=== PATIENT | male | born 1940 | race Hispanic/Latino ===

== ENCOUNTER 2017-09-24 11:56 | Inpatient (IN) | payer MEDICARE ==
[~2017-09-24] VITALS: Ht 172.7 cm; Wt 60.1 kg
[2017-09-24 14:13] VITALS: BP 135/67
[2017-09-24] MEDS ORDERED: ASPI81TA40 PO (14:55)
[2017-09-24] MEDS ORDERED: AMLO2.5T PO (14:55)
[2017-09-24] MEDS ORDERED: CALC667C10 PO (14:58)
[2017-09-24] MEDS ORDERED: ATOR20TA65 PO (14:58)
[2017-09-24] MEDS ORDERED: FERR325T22 PO (15:09)
[2017-09-24] MEDS ORDERED: DOCU100T PO (15:09)
[2017-09-24] MEDS ORDERED: INSU100V12 SQ (15:09)
[2017-09-24] MEDS ORDERED: CARV6.25 PO (15:09)
[2017-09-24] MEDS ORDERED: LINA5TAB PO (15:12)
[2017-09-24] MEDS ORDERED: HYDR-309 PO (15:17)
[2017-09-24] MEDS ORDERED: OMEG-75 PO (15:23)
[2017-09-24] MEDS ORDERED: OMEP20CA10 PO (15:24)
[2017-09-24] MEDS ORDERED: CLOP75TA32 PO (15:26)
[2017-09-24] MEDS ORDERED: CINA30 PO (15:30)
[2017-09-24] MEDS ORDERED: DiphenhydrAMINE HCL 50 MG/ML VIAL IVP PRN (16:30)
[2017-09-24] MEDS ORDERED: GLUCAGON 1MG KIT 1 MG ML IM PRN (16:30)
[2017-09-24] MEDS ORDERED: ZOLPIDEM TARTRATE 5 MG TAB PO PRN (16:30)
[2017-09-24] MEDS ORDERED: ACETAMINOPHEN 325 MG TAB PO PRN ×2 (16:30)
[2017-09-24] MEDS ORDERED: LACTULOSE 20 GM/30 ML UDCUP PO PRN (16:30)
[2017-09-24] MEDS ORDERED: DEXTROSE 50%-WATER 50 ML DISP.SYRIN IV PRN (16:30)
[2017-09-24] MEDS: INSULIN R PO SSI SQ SCH ×2 (16:30→20:11)
[2017-09-24] MEDS ORDERED: POTASSIUM CHLORIDE 20 MEQ ERTAB PO PRN (16:30)
[2017-09-24] MEDS ORDERED: VANCOMYCIN PROTOCOL PER PHARMACY IV SCH (16:30)
[2017-09-24] MEDS ORDERED: DIPHENHYDRAMINE HCL 25 MG CAPSULE PO PRN (16:30)
[2017-09-24] MEDS ORDERED: ONDANSETRON HCL 4 MG/2 ML VIAL IVP PRN (16:30)
[2017-09-24] MEDS ORDERED: NITROGLYCERIN 0.4 MG SL TAB SL PRN (16:30)
[2017-09-24] MEDS ORDERED: POTASSIUM CHLORIDE 10% ELIXIR 20 MEQ/15 ML UDCUP PO PRN (16:30)
[2017-09-24] MEDS ORDERED: ONDANSETRON HCL MDV 20ML 2 MG/ML VIAL IVP PRN (16:30)
[2017-09-24] MEDS ORDERED: GUAIFENESIN SUGAR-FREE 100 MG/5 ML UDCUP PO PRN (16:30)
[2017-09-24] MEDS ORDERED: LIDOCAINE HCL-MPF 1% 2ML VIAL IJ PRN (16:30)
[2017-09-24] MEDS ORDERED: POTASSIUM CHLORIDE 20MEQ/100ML 100 ML IV PRN (16:30)
[2017-09-24] MEDS ORDERED: CLONIDINE HCL 0.1 MG TABLET PO PRN (16:30)
[2017-09-24] MEDS ORDERED: GUAIFENESIN-DM 200/20 MG 10 ML PO PRN (16:30)
[2017-09-24] MEDS ORDERED: MAG HYDROX/AL HYDROX/SIMETH ES 30 ML SUSP UDCUP PO PRN (16:30)
[2017-09-24] MEDS ORDERED: VANCOMYCIN 1.5 GM in SODIUM CHLORIDE 0.9% 250 ML IV ONE (16:45)
[2017-09-24] MEDS ORDERED: COMPOUND IV REFRIGERATED 1 EACH IVSOLN MISC PRN (16:45)
[2017-09-24 17:09] VITALS: BP 129/65
[2017-09-24 19:00] VITALS: BP 139/70
[2017-09-24] MEDS: MEROPENEM 1 GM VIAL IVP SCH (19:28)
[2017-09-24] MEDS ORDERED: HEPARIN SODIUM 5000UNIT/ML 1ML VIAL ONE (19:59)
[2017-09-24] MEDS ORDERED: SODIUM CHLORIDE 0.9% 1000ML 1,000 ML IV ONE (20:00)
[2017-09-24] MEDS ORDERED: HEPARIN SODIUM 5000UNIT/ML 1ML VIAL IJ PRN (21:15)
[2017-09-24] MEDS ORDERED: SODIUM CHLORIDE 0.9% 1000ML 1,000 ML IV PRN (21:15)
[2017-09-24] MEDS ORDERED: 0.9% SODIUM CHLORIDE 250 ML IV BAG IV PRN (21:15)
[2017-09-24 23:00] VITALS: BP 113/58
[2017-09-24] MEDS: FAMOTIDINE 20MG TAB 20 MG TAB PO SCH (23:41)
[2017-09-25] MEDS: IPRATROPIUM/ALBUTEROL SULFATE 3 ML SOLUTION IH SCH ×5 (01:26→23:30)
[2017-09-25] MEDS: MEROPENEM 1 GM VIAL IVP SCH ×3 (01:37→18:38)
[2017-09-25 03:00] VITALS: BP 133/53
[2017-09-25 04:38] LABS: HEMATOCRIT 27.5 % (42-54); MEAN CORPUSCULAR HEMOGLOBIN 32.4 pg (27.0-33.0); MEAN CORPUSCULAR HGB CONC 35.3 g/dL (32.0-36.0); MEAN CORPUSCULAR VOLUME 91.8 fL (79-99); PLATELET COUNT (AUTO) 234 K/uL (130-400); RED CELL DISTRIBUTION WIDTH 18.4 % (11.0-15.5); WHITE BLOOD COUNT (AUTO) 6.3 K/uL (4.8-10.8)
[2017-09-25 04:44] LABS: INR 1.04 (0.85-1.15); PARTIAL THROMBOPLASTIN TIME 26.4 SEC (26.3-35.5); PROTHROMBIN TIME 10.9 SEC (9.6-11.6)
[2017-09-25 04:49] LABS: ALBUMIN 1.9 g/dL (3.5-5.0); BILIRUBIN,TOTAL 0.4 mg/dL (0.2-1.0); CREATININE 4.9 mg/dL (0.5-1.5); PHOSPHORUS 2.5 mg/dL (2.5-4.9); POTASSIUM 4.2 mmol/L (3.5-5.1); TOTAL PROTEIN, SERUM 6.8 g/dL (6.0-8.3)
[2017-09-25] MEDS: INSULIN R PO SSI SQ SCH ×4 (06:33→21:00)
[2017-09-25 07:35] VITALS: BP 143/66
[2017-09-25] MEDS ORDERED: COMPOUND IV REFRIGERATED 1 EACH IVSOLN MISC PRN (07:45)
[2017-09-25] MEDS: FOLIC ACID/VITAMIN B COMP W-C 1 MG CAPSULE PO SCH (11:35)
[2017-09-25] MEDS: FAMOTIDINE 20MG TAB 20 MG TAB PO SCH ×2 (11:35→21:19)
[2017-09-25 11:36] VITALS: BP 138/65
[2017-09-25 16:18] VITALS: BP 135/70
[2017-09-25 20:00] VITALS: BP 134/62
[2017-09-26] VITALS: BP 113/59
[2017-09-26] MEDS: MEROPENEM 1 GM VIAL IVP SCH ×3 (02:49→17:20)
[2017-09-26 04:00] VITALS: BP 127/64
[2017-09-26] MEDS: IPRATROPIUM/ALBUTEROL SULFATE 3 ML SOLUTION IH SCH ×3 (06:50→19:20)
[2017-09-26] MEDS: INSULIN R PO SSI SQ SCH ×4 (07:30→21:00)
[2017-09-26 08:00] VITALS: BP 123/70
[2017-09-26] MEDS ORDERED: ALBUMIN (HUMAN) 25% 100 ML IV PRN (08:45)
[2017-09-26] MEDS ORDERED: 0.9% SODIUM CHLORIDE 250 ML IV BAG IV PRN (08:45)
[2017-09-26] MEDS ORDERED: SODIUM CHLORIDE 0.9% 1000ML 1,000 ML IV PRN (08:45)
[2017-09-26] MEDS ORDERED: HEPARIN SODIUM 5000UNIT/ML 1ML VIAL IJ PRN (08:45)
[2017-09-26] MEDS: FOLIC ACID/VITAMIN B COMP W-C 1 MG CAPSULE PO SCH (10:28)
[2017-09-26] MEDS: FAMOTIDINE 20MG TAB 20 MG TAB PO SCH ×2 (10:28→23:13)
[2017-09-26 11:44] VITALS: BP 131/63
[2017-09-26] MEDS ORDERED: LIDOCAINE/PRILOCAINE CREAM 30 GM TUBE TP SCH (12:15)
[2017-09-26] MEDS: VANCOMYCIN 750MG + NS 250 ML IV SCH ×2 (13:56)
[2017-09-26] MEDS ORDERED: BRIM15OS OU (14:09)
[2017-09-26 16:00] VITALS: BP 129/67
[2017-09-26 19:00] VITALS: BP 138/64
[2017-09-27] VITALS (19 sets, daily range): BP systolic 120–158; BP diastolic 54–98
[2017-09-27] MEDS: IPRATROPIUM/ALBUTEROL SULFATE 3 ML SOLUTION IH SCH ×5 (00:24→23:44)
[2017-09-27] MEDS: MEROPENEM 1 GM VIAL IVP SCH ×3 (02:59→16:54)
[2017-09-27 04:47] LABS: HEMATOCRIT 27.4 % (42-54); MEAN CORPUSCULAR HEMOGLOBIN 31.8 pg (27.0-33.0); MEAN CORPUSCULAR HGB CONC 34.5 g/dL (32.0-36.0); MEAN CORPUSCULAR VOLUME 92.2 fL (79-99); PLATELET COUNT (AUTO) 212 K/uL (130-400); RED BLOOD CELL COUNT(AUTO) 2.97 MIL/uL (4.50-6.20); RED CELL DISTRIBUTION WIDTH 17.8 % (11.0-15.5); WHITE BLOOD COUNT (AUTO) 5.9 K/uL (4.8-10.8)
[2017-09-27 05:09] LABS: CREATININE 4.7 mg/dL (0.5-1.5); POTASSIUM 4.1 mmol/L (3.5-5.1)
[2017-09-27] MEDS: INSULIN R PO SSI SQ SCH ×4 (06:37→21:00)
[2017-09-27] MEDS ORDERED: DEXAMETHASONE SOD PHOSPHATE 10MG/ML 1ML VIAL ONE (13:00)
[2017-09-27] MEDS ORDERED: GLYCOPYRROLATE 0.2 MG/ML 5 ML VIAL ONE (13:00)
[2017-09-27] MEDS ORDERED: LIDOCAINE PF 2% 5ML ABBOJECT ONE (13:00)
[2017-09-27] MEDS ORDERED: PROPOFOL 10 MG/ML 20ML VIAL IV ONE (13:01)
[2017-09-27] MEDS ORDERED: MIDAZOLAM HCL 1 MG/ML 2ML VIAL ONE (13:01)
[2017-09-27] MEDS ORDERED: FENTANYL CITRATE PF 50 MCG/1 ML 2ML VIAL ONE (13:02)
[2017-09-27] MEDS ORDERED: BUPIVACAINE/PF 0.5% 30ML VIAL ONE (13:11)
[2017-09-27] MEDS ORDERED: LIDOCAINE HCL 1% 20 ML VIAL ONE (13:11)
[2017-09-27] MEDS: FAMOTIDINE 20MG TAB 20 MG TAB PO SCH ×2 (16:53→23:20)
[2017-09-27] MEDS: FOLIC ACID/VITAMIN B COMP W-C 1 MG CAPSULE PO SCH (16:54)
[2017-09-27] MEDS: LACTULOSE 20 GM/30 ML UDCUP PO PRN (23:19)
[2017-09-27] MEDS ORDERED: MORPHINE SULFATE 2 MG/ML 1ML SYG IVP PRN (23:45)
[2017-09-27] MEDS ORDERED: HYDROMORPHONE HCL 0.5 MG/0.5 ML ML IVP PRN (23:45)
[2017-09-28] VITALS (7 sets, daily range): BP systolic 100–149; BP diastolic 51–78
[2017-09-28] MEDS ORDERED: HYDROMORPHONE 1 MG/1 ML AMP ONE ×2 (00:26→06:35)
[2017-09-28 05:12] LABS: HEMATOCRIT 26.9 % (42-54); MEAN CORPUSCULAR HEMOGLOBIN 30.6 pg (27.0-33.0); MEAN CORPUSCULAR HGB CONC 33.1 g/dL (32.0-36.0); MEAN CORPUSCULAR VOLUME 92.5 fL (79-99); PLATELET COUNT (AUTO) 202 K/uL (130-400); WHITE BLOOD COUNT (AUTO) 9.2 K/uL (4.8-10.8)
[2017-09-28 05:36] LABS: CREATININE 6.4 mg/dL (0.5-1.5); PHOSPHORUS 3.2 mg/dL (2.5-4.9); POTASSIUM 5.1 mmol/L (3.5-5.1)
[2017-09-28] MEDS: LACTULOSE 20 GM/30 ML UDCUP PO PRN (06:41)
[2017-09-28] MEDS: MEROPENEM 1 GM VIAL IVP SCH ×3 (06:44→18:07)
[2017-09-28] MEDS: INSULIN R PO SSI SQ SCH ×4 (06:52→21:00)
[2017-09-28] MEDS: IPRATROPIUM/ALBUTEROL SULFATE 3 ML SOLUTION IH SCH ×3 (07:02→18:38)
[2017-09-28] MEDS ORDERED: MORPHINE SULFATE 4 MG/1ML SYG ONE (08:08)
[2017-09-28] MEDS: FOLIC ACID/VITAMIN B COMP W-C 1 MG CAPSULE PO SCH (09:12)
[2017-09-28] MEDS: FAMOTIDINE 20MG TAB 20 MG TAB PO SCH ×2 (09:12→21:10)
[2017-09-28] MEDS: VANCOMYCIN 750MG + NS 250 ML IV SCH ×2 (09:20)
[2017-09-28] MEDS ORDERED: VANCOMYCIN 750MG + NS 250 ML IV SCH ×2 (12:16)
[2017-09-28] MEDS ORDERED: EPOETIN ALFA 10,000 UNIT/ML VIAL SQ SCH (14:00)
[2017-09-29] MEDS: IPRATROPIUM/ALBUTEROL SULFATE 3 ML SOLUTION IH SCH ×4 (00:01→18:27)
[2017-09-29] MEDS: MEROPENEM 1 GM VIAL IVP SCH ×3 (00:29→18:05)
[2017-09-29 03:21] VITALS: BP 116/60
[2017-09-29 04:55] LABS: HEMATOCRIT 23.4 % (42-54); MEAN CORPUSCULAR HEMOGLOBIN 31.9 pg (27.0-33.0); MEAN CORPUSCULAR HGB CONC 34.6 g/dL (32.0-36.0); MEAN CORPUSCULAR VOLUME 92.2 fL (79-99); PLATELET COUNT (AUTO) 171 K/uL (130-400); RED BLOOD CELL COUNT(AUTO) 2.54 MIL/uL (4.50-6.20)
[2017-09-29 05:10] LABS: CREATININE 4.6 mg/dL (0.5-1.5); POTASSIUM 4.1 mmol/L (3.5-5.1)
[2017-09-29 05:15] LABS: HEMOGLOBIN A1C 4.9 % (4.0-6.0)
[2017-09-29 08:00] VITALS: BP 126/63
[2017-09-29] MEDS: FOLIC ACID/VITAMIN B COMP W-C 1 MG CAPSULE PO SCH (10:00)
[2017-09-29] MEDS: FAMOTIDINE 20MG TAB 20 MG TAB PO SCH ×2 (10:00→21:39)
[2017-09-29] MEDS: INSULIN R PO SSI SQ SCH ×3 (11:30→21:00)
[2017-09-29 11:56] VITALS: BP 111/60
[2017-09-29 15:46] VITALS: BP 107/53
[2017-09-29 19:10] VITALS: BP 120/61
[2017-09-29 23:19] VITALS: BP 109/58
[2017-09-30] MEDS: MEROPENEM 1 GM VIAL IVP SCH ×3 (01:13→17:19)
[2017-09-30] MEDS: IPRATROPIUM/ALBUTEROL SULFATE 3 ML SOLUTION IH SCH ×5 (01:25→23:21)
[2017-09-30 03:46] VITALS: BP 120/63
[2017-09-30] MEDS: INSULIN R PO SSI SQ SCH ×4 (07:30→21:00)
[2017-09-30 08:00] VITALS: BP 115/61
[2017-09-30] MEDS: BRIMONIDINE TARTRATE 0.2% 5 ML BOTTLE OU SCH ×2 (09:00→21:50)
[2017-09-30] MEDS: FOLIC ACID/VITAMIN B COMP W-C 1 MG CAPSULE PO SCH (09:11)
[2017-09-30] MEDS: FAMOTIDINE 20MG TAB 20 MG TAB PO SCH ×2 (09:12→21:00)
[2017-09-30 12:00] VITALS: BP 120/61
[2017-09-30 15:59] VITALS: BP 135/68
[2017-09-30 19:14] VITALS: BP 138/66
[2017-09-30 23:10] VITALS: BP 126/64
[2017-10-01] MEDS: MEROPENEM 1 GM VIAL IVP SCH ×3 (02:11→17:14)
[2017-10-01 03:48] VITALS: BP 119/64
[2017-10-01] MEDS: INSULIN R PO SSI SQ SCH ×4 (05:55→21:00)
[2017-10-01] MEDS: IPRATROPIUM/ALBUTEROL SULFATE 3 ML SOLUTION IH SCH ×4 (06:13→23:46)
[2017-10-01] MEDS: FAMOTIDINE 20MG TAB 20 MG TAB PO SCH ×3 (07:30→21:00)
[2017-10-01 07:52] VITALS: BP 128/59
[2017-10-01] MEDS: CLOPIDOGREL BISULFATE 75 MG TAB PO SCH (09:29)
[2017-10-01] MEDS: CALCIUM ACETATE 667 MG CAPSULE PO SCH ×3 (09:29→17:15)
[2017-10-01] MEDS: FERROUS SULFATE 325 MG TABLET.DR PO SCH (09:29)
[2017-10-01] MEDS: ASPIRIN 81 MG EC TAB PO SCH (09:30)
[2017-10-01] MEDS: CARVEDILOL 6.25 MG TABLET PO SCH ×2 (09:32→21:00)
[2017-10-01] MEDS: CINACALCET HCL 30 MG TAB PO SCH (09:32)
[2017-10-01] MEDS: FOLIC ACID/VITAMIN B COMP W-C 1 MG CAPSULE PO SCH (09:32)
[2017-10-01] MEDS: FISH OIL 1000 MG/CAP PO SCH ×2 (09:32→21:00)
[2017-10-01] MEDS: DOCUSATE SODIUM 100 MG CAP PO SCH (09:32)
[2017-10-01] MEDS: BRIMONIDINE TARTRATE 0.2% 5 ML BOTTLE OU SCH ×2 (09:33→21:00)
[2017-10-01 11:59] VITALS: BP 140/71
[2017-10-01 16:00] VITALS: BP 135/68
[2017-10-01] MEDS ORDERED: DiphenhydrAMINE HCL 50 MG/ML VIAL IVP PRN (16:45)
[2017-10-01 19:00] VITALS: BP 132/66
[2017-10-01] MEDS ORDERED: VANCOMYCIN 500MG+NS 100ML 100 ML IV SCH (20:07)
[2017-10-01] MEDS ORDERED: ATORVASTATIN CALCIUM 20 MG TABLET PO SCH (21:00)
[2017-10-01 23:53] VITALS: BP 131/63
[2017-10-02] MEDS: MEROPENEM 1 GM VIAL IVP SCH ×2 (00:28→09:55)
[2017-10-02 04:00] VITALS: BP 135/64
[2017-10-02] MEDS: IPRATROPIUM/ALBUTEROL SULFATE 3 ML SOLUTION IH SCH ×2 (05:57→11:38)
[2017-10-02 06:06] LABS: HEMATOCRIT 25.9 % (42-54); MEAN CORPUSCULAR HEMOGLOBIN 30.8 pg (27.0-33.0); MEAN CORPUSCULAR HGB CONC 33.9 g/dL (32.0-36.0); MEAN CORPUSCULAR VOLUME 90.8 fL (79-99); PLATELET COUNT (AUTO) 182 K/uL (130-400); RED BLOOD CELL COUNT(AUTO) 2.85 MIL/uL (4.50-6.20); RED CELL DISTRIBUTION WIDTH 17.1 % (11.0-15.5); WHITE BLOOD COUNT (AUTO) 5.2 K/uL (4.8-10.8)
[2017-10-02 06:29] LABS: CREATININE 5.8 mg/dL (0.5-1.5); POTASSIUM 4.3 mmol/L (3.5-5.1)
[2017-10-02] MEDS: INSULIN R PO SSI SQ SCH ×2 (07:30→11:30)
[2017-10-02] MEDS: FAMOTIDINE 20MG TAB 20 MG TAB PO SCH ×2 (07:30→09:54)
[2017-10-02 08:00] VITALS: BP 140/68
[2017-10-02] MEDS: DOCUSATE SODIUM 100 MG CAP PO SCH (09:53)
[2017-10-02] MEDS: CLOPIDOGREL BISULFATE 75 MG TAB PO SCH (09:53)
[2017-10-02] MEDS: CINACALCET HCL 30 MG TAB PO SCH (09:53)
[2017-10-02] MEDS: ASPIRIN 81 MG EC TAB PO SCH (09:53)
[2017-10-02] MEDS: FOLIC ACID/VITAMIN B COMP W-C 1 MG CAPSULE PO SCH (09:53)
[2017-10-02] MEDS: CALCIUM ACETATE 667 MG CAPSULE PO SCH ×2 (09:53→13:24)
[2017-10-02] MEDS: FERROUS SULFATE 325 MG TABLET.DR PO SCH (09:53)
[2017-10-02] MEDS: CARVEDILOL 6.25 MG TABLET PO SCH (09:54)
[2017-10-02] MEDS: FISH OIL 1000 MG/CAP PO SCH (09:54)
[2017-10-02] MEDS: BRIMONIDINE TARTRATE 0.2% 5 ML BOTTLE OU SCH (09:55)
[2017-10-02 11:42] VITALS: BP 125/75
[2017-10-02 16:00] VITALS: BP 129/62
== END 2017-10-02 16:51 | DRG 239 ==
LOC: EDH 11:56 → 3DH 12:15
PROVIDERS: ADMIT Family Medicine; ATTEND Family Medicine
PROC: 5A1D70Z Performance of Urinary Filtration, Intermittent, Less than 6 Hours Per Day (ICD-10-PCS; 2017-09-24)
PROC: 5A1D70Z Performance of Urinary Filtration, Intermittent, Less than 6 Hours Per Day (ICD-10-PCS; 2017-09-26)
PROC: 0Y6N0Z4 Detachment at Left Foot, Complete 1st Ray, Open Approach (ICD-10-PCS; principal; 2017-09-27 13:00)
PROC: 5A1D70Z Performance of Urinary Filtration, Intermittent, Less than 6 Hours Per Day (ICD-10-PCS; 2017-09-28)
PROC: 5A1D70Z Performance of Urinary Filtration, Intermittent, Less than 6 Hours Per Day (ICD-10-PCS; 2017-10-01)
PROC: 5A1D70Z Performance of Urinary Filtration, Intermittent, Less than 6 Hours Per Day (ICD-10-PCS; 2017-10-01)
DX: E11.52 Type 2 diabetes mellitus with diabetic peripheral angiopathy with gangrene (principal); N18.6 End stage renal disease; I13.2 Hypertensive heart and chronic kidney disease with heart failure and with stage 5 chronic kidney disease, or end stage renal disease; E11.621 Type 2 diabetes mellitus with foot ulcer; E11.21 Type 2 diabetes mellitus with diabetic nephropathy; M86.9 Osteomyelitis, unspecified; I50.22 Chronic systolic (congestive) heart failure; I25.5 Ischemic cardiomyopathy; I25.10 Atherosclerotic heart disease of native coronary artery without angina pectoris; E11.22 Type 2 diabetes mellitus with diabetic chronic kidney disease; F03.90 Unspecified dementia, unspecified severity, without behavioral disturbance, psychotic disturbance, mood disturbance, and anxiety; D64.9 Anemia, unspecified; Z95.1 Presence of aortocoronary bypass graft; E11.69 Type 2 diabetes mellitus with other specified complication; L97.509 Non-pressure chronic ulcer of other part of unspecified foot with unspecified severity; Z89.412 Acquired absence of left great toe; Z95.5 Presence of coronary angioplasty implant and graft; Z99.2 Dependence on renal dialysis
CPT/HCPCS: 36415; 73630; 73718; 80048; 80053; 80202; 82948; 83036; 84100; 85027; 85347; 85610; 85730; 87070; 87076; 87077; 87186; 88305; 88311; 90935; 93925; 94640; 94664; A4218; J0885; J1100; J1170; J1644; J2001; J2185; J2250; J2270; J2704; J3010; J3370; J3490; J7030

== ENCOUNTER 2017-10-08 10:42 | Inpatient (IN) | payer MEDICARE ==
[~2017-10-08] VITALS: Ht 172.7 cm; Wt 64.4 kg
[~2017-10-08 10:42] MED LIST: AMLO2.5T PO; ASPI81TA40 PO; ATOR20TA65 PO; BRIM15OS OU; CALC667C10 PO; CARV6.25 PO; CINA30 PO; CLOP75TA32 PO; DOCU100T PO; FERR325T22 PO; HYDR-309 PO; INSU100V12 SQ; LINA5TAB PO; OMEG-75 PO; OMEP20CA10 PO
[2017-10-08 11:34] LABS: BASOPHILS % (AUTO) 1.4 % (0.0-5.0); EOSINOPHILS % (AUTO) 50.4 % (0.0-8.0); HEMATOCRIT 26.4 % (42-54); LYMPHOCYTES % (AUTO) 8.6 % (21.0-51.0); MEAN CORPUSCULAR HEMOGLOBIN 31.6 pg (27.0-33.0); MEAN CORPUSCULAR HGB CONC 34.3 g/dL (32.0-36.0); MEAN CORPUSCULAR VOLUME 92.1 fL (79-99); MONOCYTES % (AUTO) 5.7 % (3.0-13.0); NEUTROPHILS % (AUTO) 33.9 % (40.0-77.0); PLATELET COUNT (AUTO) 196 K/uL (130-400); RED BLOOD CELL COUNT(AUTO) 2.87 MIL/uL (4.50-6.20); RED CELL DISTRIBUTION WIDTH 17.9 % (11.0-15.5); WHITE BLOOD COUNT (AUTO) 8.6 K/uL (4.8-10.8)
[2017-10-08] MEDS ORDERED: FAMOTIDINE 20MG TAB 20 MG TAB ONE (11:39)
[2017-10-08 11:55] LABS: CREATININE 5.1 mg/dL (0.5-1.5); POTASSIUM 4.4 mmol/L (3.5-5.1)
[2017-10-08 12:00] LABS: ALBUMIN 2.1 g/dL (3.5-5.0); BILIRUBIN,TOTAL 0.5 mg/dL (0.2-1.0); TOTAL PROTEIN, SERUM 7.1 g/dL (6.0-8.3)
[2017-10-08] MEDS: ZOSYN 3.375GM+NS 50ML 50 ML IV SCH ×2 (12:00→23:55)
[2017-10-08] MEDS ORDERED: ACETAMINOPHEN 325 MG TAB PO PRN ×2 (12:15)
[2017-10-08] MEDS ORDERED: GUAIFENESIN-DM 200/20 MG 10 ML PO PRN (12:15)
[2017-10-08] MEDS ORDERED: CLONIDINE HCL 0.1 MG TABLET PO PRN (12:15)
[2017-10-08] MEDS ORDERED: POTASSIUM CHLORIDE 20MEQ/100ML 100 ML IV PRN (12:15)
[2017-10-08] MEDS ORDERED: DEXTROSE 50%-WATER 50 ML DISP.SYRIN IV PRN (12:15)
[2017-10-08] MEDS ORDERED: POTASSIUM CHLORIDE 10% ELIXIR 20 MEQ/15 ML UDCUP PO PRN (12:15)
[2017-10-08] MEDS ORDERED: LIDOCAINE HCL-MPF 1% 2ML VIAL IJ PRN (12:15)
[2017-10-08] MEDS ORDERED: MAG HYDROX/AL HYDROX/SIMETH ES 30 ML SUSP UDCUP PO PRN (12:15)
[2017-10-08] MEDS ORDERED: ONDANSETRON HCL 4 MG/2 ML VIAL IVP PRN (12:15)
[2017-10-08] MEDS ORDERED: GLUCAGON 1MG KIT 1 MG ML IM PRN (12:15)
[2017-10-08] MEDS ORDERED: NITROGLYCERIN 0.4 MG SL TAB SL PRN (12:15)
[2017-10-08] MEDS ORDERED: POTASSIUM CHLORIDE 20 MEQ ERTAB PO PRN (12:15)
[2017-10-08] MEDS ORDERED: SODIUM CHLORIDE 0.9% 10 ML VIAL IVP SCH (12:15)
[2017-10-08] MEDS ORDERED: DIPHENHYDRAMINE HCL 25 MG CAPSULE PO PRN (12:15)
[2017-10-08] MEDS ORDERED: DiphenhydrAMINE HCL 50 MG/ML VIAL IVP PRN (12:15)
[2017-10-08] MEDS ORDERED: ZOLPIDEM TARTRATE 5 MG TAB PO PRN (12:15)
[2017-10-08] MEDS ORDERED: LACTULOSE 20 GM/30 ML UDCUP PO PRN (12:15)
[2017-10-08] MEDS ORDERED: ONDANSETRON HCL MDV 20ML 2 MG/ML VIAL IVP PRN (12:18)
[2017-10-08] MEDS ORDERED: COMPOUND IV REFRIGERATED 1 EACH IVSOLN MISC PRN (12:30)
[2017-10-08] MEDS ORDERED: VANCOMYCIN PROTOCOL PER PHARMACY IV SCH (12:30)
[2017-10-08] MEDS ORDERED: VANCOMYCIN 1.5 GM in SODIUM CHLORIDE 0.9% 250 ML IV ONE (16:00)
[2017-10-08 18:42] VITALS: BP 135/65
[2017-10-08 20:00] VITALS: BP 154/65
[2017-10-08] MEDS: FAMOTIDINE 20MG TAB 20 MG TAB PO SCH (20:46)
[2017-10-08] MEDS: INSULIN R PO SSI SQ SCH (20:54)
[2017-10-09] VITALS: BP 130/66
[2017-10-09 05:06] LABS: HEMATOCRIT 23.9 % (42-54); MEAN CORPUSCULAR HEMOGLOBIN 30.2 pg (27.0-33.0); MEAN CORPUSCULAR VOLUME 91.5 fL (79-99); PLATELET COUNT (AUTO) 182 K/uL (130-400); RED BLOOD CELL COUNT(AUTO) 2.61 MIL/uL (4.50-6.20); RED CELL DISTRIBUTION WIDTH 17.5 % (11.0-15.5)
[2017-10-09 05:29] LABS: CREATININE 5.8 mg/dL (0.5-1.5); PHOSPHORUS 2.4 mg/dL (2.5-4.9); POTASSIUM 4.8 mmol/L (3.5-5.1)
[2017-10-09] MEDS: INSULIN R PO SSI SQ SCH ×4 (06:08→20:54)
[2017-10-09 08:00] VITALS: BP 114/55
[2017-10-09] MEDS: BRIMONIDINE TARTRATE OU SCH ×2 (09:00→20:54)
[2017-10-09] MEDS: INSULIN GLARGINE 100 UNITS/ML 10 ML VIAL SQ SCH (09:00)
[2017-10-09] MEDS: FAMOTIDINE 20MG TAB 20 MG TAB PO SCH ×2 (10:39→20:53)
[2017-10-09] MEDS: LINAGLIPTIN 5 MG TABLET PO SCH (10:39)
[2017-10-09] MEDS: CINACALCET HCL 30 MG TAB PO SCH (10:39)
[2017-10-09] MEDS: CARVEDILOL 6.25 MG TABLET PO SCH ×2 (10:40→20:54)
[2017-10-09] MEDS: AMLODIPINE BESYLATE 2.5 MG TAB PO SCH (10:40)
[2017-10-09] MEDS: ZOSYN 3.375GM+NS 50ML 50 ML IV SCH ×2 (10:44→23:17)
[2017-10-09 12:00] VITALS: BP 112/61
[2017-10-09] MEDS: FERROUS SULFATE 325 MG TABLET.DR PO SCH (12:07)
[2017-10-09] MEDS: DOCUSATE SODIUM 100 MG CAP PO SCH (12:07)
[2017-10-09] MEDS: FISH OIL 1000 MG/CAP PO SCH ×2 (12:07→20:53)
[2017-10-09] MEDS ORDERED: CLOPIDOGREL BISULFATE 75 MG TAB ONE (12:08)
[2017-10-09] MEDS ORDERED: ASPIRIN 81MG TAB.CHEW ONE (12:08)
[2017-10-09] MEDS ORDERED: SODIUM CHLORIDE 0.9% 1000ML 1,000 ML IV SCH (12:31)
[2017-10-09] MEDS ORDERED: DiphenhydrAMINE HCL 50 MG/ML VIAL IVP PRN (12:45)
[2017-10-09 16:00] VITALS: BP 98/51
[2017-10-09] MEDS: ATORVASTATIN CALCIUM 20 MG TABLET PO SCH (20:53)
[2017-10-10] VITALS (9 sets, daily range): BP systolic 107–149; BP diastolic 53–72
[2017-10-10 04:44] LABS: HEMATOCRIT 21.6 % (42-54); MEAN CORPUSCULAR HEMOGLOBIN 30.3 pg (27.0-33.0); MEAN CORPUSCULAR HGB CONC 32.8 g/dL (32.0-36.0); MEAN CORPUSCULAR VOLUME 92.3 fL (79-99); PLATELET COUNT (AUTO) 167 K/uL (130-400); RED BLOOD CELL COUNT(AUTO) 2.34 MIL/uL (4.50-6.20); WHITE BLOOD COUNT (AUTO) 9.6 K/uL (4.8-10.8)
[2017-10-10 04:46] LABS: INR 1.13 (0.85-1.15); PARTIAL THROMBOPLASTIN TIME 29.6 SEC (26.3-35.5); PROTHROMBIN TIME 11.8 SEC (9.6-11.6)
[2017-10-10 05:05] LABS: CARBON DIOXIDE 33 mmol/L (21-32); CHLORIDE 99 mmol/L (101-111); CREATINE KINASE MB < 0.5 ng/mL (0.5-3.6); CREATINE KINASE, TOTAL 10 U/L (21-232); CREATININE 7.2 mg/dL (0.5-1.5); GLOMERULAR FILTR. RATE CALC 8 mL/min (>60); GLUCOSE,RANDOM 118 mg/dL (70-105); MYOGLOBIN 116 ng/mL (10-92); POTASSIUM 5.4 mmol/L (3.5-5.1); SODIUM SERUM 140 mmol/L (136-145); TROPONIN I < 0.04 ng/mL (0.00-0.06); UREA NITROGEN, BLOOD 43 mg/dL (7-18)
[2017-10-10] MEDS: INSULIN R PO SSI SQ SCH ×4 (06:10→21:00)
[2017-10-10] MEDS: PANTOPRAZOLE SODIUM 40 MG TABLET.DR PO SCH (06:48)
[2017-10-10] MEDS ORDERED: NITROGLYCERIN 5 MG/ML 10 ML VIAL IV ONE (07:08)
[2017-10-10] MEDS ORDERED: HEPARIN SODIUM 1000UNIT/ML 10ML VIAL ONE (07:08)
[2017-10-10] MEDS ORDERED: ISOVUE-300 100 ML VIAL IV ONE ×2 (07:08→08:49)
[2017-10-10] MEDS ORDERED: LIDOCAINE HCL-MPF 2% 5ML VIAL ONE (07:08)
[2017-10-10] MEDS ORDERED: FENTANYL CITRATE PF 50 MCG/1 ML 2ML VIAL ONE (08:02)
[2017-10-10] MEDS ORDERED: MIDAZOLAM HCL 1 MG/ML 2ML VIAL ONE (08:02)
[2017-10-10] MEDS ORDERED: ASPIRIN 81 MG EC TAB PO SCH (09:00)
[2017-10-10] MEDS: BRIMONIDINE TARTRATE OU SCH ×2 (09:00→21:00)
[2017-10-10] MEDS: CINACALCET HCL 30 MG TAB PO SCH (09:00)
[2017-10-10] MEDS: AMLODIPINE BESYLATE 2.5 MG TAB PO SCH (09:00)
[2017-10-10] MEDS: CARVEDILOL 6.25 MG TABLET PO SCH ×2 (09:00→23:00)
[2017-10-10] MEDS: LINAGLIPTIN 5 MG TABLET PO SCH (09:00)
[2017-10-10] MEDS: FISH OIL 1000 MG/CAP PO SCH ×2 (09:00→22:59)
[2017-10-10] MEDS: INSULIN GLARGINE 100 UNITS/ML 10 ML VIAL SQ SCH (09:00)
[2017-10-10] MEDS ORDERED: CLOPIDOGREL BISULFATE 75 MG TAB PO SCH (09:00)
[2017-10-10] MEDS ORDERED: SODIUM CHLORIDE 0.9% 1000ML 1,000 ML IV SCH (09:34)
[2017-10-10 10:40] LABS: MEAN CORPUSCULAR HEMOGLOBIN 31.7 pg (27.0-33.0); MEAN CORPUSCULAR HGB CONC 34.1 g/dL (32.0-36.0); MEAN CORPUSCULAR VOLUME 92.9 fL (79-99); PLATELET COUNT (AUTO) 131 K/uL (130-400); RED BLOOD CELL COUNT(AUTO) 1.82 MIL/uL (4.50-6.20); RED CELL DISTRIBUTION WIDTH 17.4 % (11.0-15.5); WHITE BLOOD COUNT (AUTO) 7.4 K/uL (4.8-10.8)
[2017-10-10 10:47] LABS: HEMATOCRIT 16.9 % (42-54)
[2017-10-10] MEDS ORDERED: SODIUM CHLORIDE 0.9% 100 ML IV ONE (11:22)
[2017-10-10] MEDS ORDERED: 0.9% SODIUM CHLORIDE 250 ML IV BAG IV PRN (11:45)
[2017-10-10] MEDS ORDERED: SODIUM CHLORIDE 0.9% 1000ML 1,000 ML IV PRN (11:45)
[2017-10-10] MEDS ORDERED: ALBUMIN (HUMAN) 25% 100 ML IV PRN (11:45)
[2017-10-10 11:46] LABS: BASOPHILS % (MANUAL) 2 % (0-2); EOSINOPHILS % (MANUAL) 49 % (1-6); LYMPHOCYTES % (MANUAL) 10 % (22-44); MONOCYTES % (MANUAL) 2 % (2-9); SEGMENTED NEUTROPHILS % 37 % (40-70)
[2017-10-10 11:47] LABS: MAN.DIFF COMMENT-IMPRESSION MANUAL DIFFERENTIAL
[2017-10-10 11:48] LABS: PLATELET MORPHOLOGY COMMENT ADEQUATE
[2017-10-10] MEDS: FERROUS SULFATE 325 MG TABLET.DR PO SCH (16:45)
[2017-10-10] MEDS: DOCUSATE SODIUM 100 MG CAP PO SCH (16:45)
[2017-10-10] MEDS: FAMOTIDINE 20MG TAB 20 MG TAB PO SCH (16:46)
[2017-10-10] MEDS: ZOSYN 3.375GM+NS 50ML 50 ML IV SCH (16:49)
[2017-10-10] MEDS: EPOETIN ALFA 10,000 UNIT/ML VIAL SQ SCH (17:11)
[2017-10-10 17:47] LABS: HEMATOCRIT 34.1 % (42-54); MEAN CORPUSCULAR HEMOGLOBIN 30.5 pg (27.0-33.0); MEAN CORPUSCULAR HGB CONC 33.9 g/dL (32.0-36.0); MEAN CORPUSCULAR VOLUME 90.1 fL (79-99); NUCLEATED RED BLOOD CELLS 0.1 % (0.0-0.19); PLATELET COUNT (AUTO) 125 K/uL (130-400); RED BLOOD CELL COUNT(AUTO) 3.79 MIL/uL (4.50-6.20); RED CELL DISTRIBUTION WIDTH 16.7 % (11.0-15.5); WHITE BLOOD COUNT (AUTO) 8.6 K/uL (4.8-10.8)
[2017-10-10] MEDS: ATORVASTATIN CALCIUM 20 MG TABLET PO SCH (21:00)
[2017-10-11] MEDS: ZOSYN 3.375GM+NS 50ML 50 ML IV SCH ×2 (00:21→13:06)
[2017-10-11 00:26] VITALS: BP 119/63
[2017-10-11 04:35] VITALS: BP 129/60
[2017-10-11 05:13] LABS: HEMATOCRIT 32.1 % (42-54); MEAN CORPUSCULAR HEMOGLOBIN 30.4 pg (27.0-33.0); MEAN CORPUSCULAR HGB CONC 33.5 g/dL (32.0-36.0); MEAN CORPUSCULAR VOLUME 90.6 fL (79-99); PLATELET COUNT (AUTO) 148 K/uL (130-400); RED BLOOD CELL COUNT(AUTO) 3.54 MIL/uL (4.50-6.20); RED CELL DISTRIBUTION WIDTH 16.7 % (11.0-15.5); WHITE BLOOD COUNT (AUTO) 8.8 K/uL (4.8-10.8)
[2017-10-11 05:17] LABS: INR 1.12 (0.85-1.15); PARTIAL THROMBOPLASTIN TIME 29.4 SEC (26.3-35.5); PROTHROMBIN TIME 11.7 SEC (9.6-11.6)
[2017-10-11 05:18] LABS: % IRON SATURATION 47.5 % (30-44)
[2017-10-11 05:21] LABS: CREATININE 4.8 mg/dL (0.5-1.5); PHOSPHORUS 2.1 mg/dL (2.5-4.9)
[2017-10-11] MEDS: INSULIN R PO SSI SQ SCH ×4 (07:09→20:49)
[2017-10-11] MEDS ORDERED: MORPHINE SULFATE 4 MG/1ML SYG IVP PRN (09:00)
[2017-10-11] MEDS: BRIMONIDINE TARTRATE OU SCH ×2 (09:00→20:49)
[2017-10-11 09:13] VITALS: BP 111/65
[2017-10-11 12:00] VITALS: BP 131/66
[2017-10-11] MEDS: DOCUSATE SODIUM 100 MG CAP PO SCH (13:03)
[2017-10-11] MEDS: FISH OIL 1000 MG/CAP PO SCH ×2 (13:03→20:48)
[2017-10-11] MEDS: FAMOTIDINE 20MG TAB 20 MG TAB PO SCH (13:04)
[2017-10-11] MEDS: CINACALCET HCL 30 MG TAB PO SCH (13:04)
[2017-10-11] MEDS: CARVEDILOL 6.25 MG TABLET PO SCH ×2 (13:04→20:48)
[2017-10-11] MEDS: LINAGLIPTIN 5 MG TABLET PO SCH (13:04)
[2017-10-11] MEDS: AMLODIPINE BESYLATE 2.5 MG TAB PO SCH (13:05)
[2017-10-11] MEDS: FERROUS SULFATE 325 MG TABLET.DR PO SCH (13:15)
[2017-10-11] MEDS: PANTOPRAZOLE SODIUM 40 MG TABLET.DR PO SCH (13:15)
[2017-10-11 13:16] LABS: HEMATOCRIT 31.2 % (42-54)
[2017-10-11] MEDS: INSULIN GLARGINE 100 UNITS/ML 10 ML VIAL SQ SCH (13:32)
[2017-10-11] MEDS ORDERED: CEFUROXIME 1.5GM+NS 100ML 100 ML IV SCH (14:00)
[2017-10-11] MEDS ORDERED: CEFUROXIME SODIUM 1.5 GM VIAL IVP SCH (14:00)
[2017-10-11 16:59] VITALS: BP 114/58
[2017-10-11 20:39] VITALS: BP 126/69
[2017-10-11] MEDS: ATORVASTATIN CALCIUM 20 MG TABLET PO SCH (20:48)
[2017-10-12 00:04] VITALS: BP 124/65
[2017-10-12] MEDS: ZOSYN 3.375GM+NS 50ML 50 ML IV SCH ×3 (00:33→23:16)
[2017-10-12 03:42] VITALS: BP 125/68
[2017-10-12 05:18] LABS: HEMATOCRIT 29.5 % (42-54); MEAN CORPUSCULAR HEMOGLOBIN 30.8 pg (27.0-33.0); MEAN CORPUSCULAR HGB CONC 34.2 g/dL (32.0-36.0); MEAN CORPUSCULAR VOLUME 90.2 fL (79-99); NUCLEATED RED BLOOD CELLS 0.1 % (0.0-0.19); PLATELET COUNT (AUTO) 137 K/uL (130-400); RED BLOOD CELL COUNT(AUTO) 3.27 MIL/uL (4.50-6.20); RED CELL DISTRIBUTION WIDTH 16.8 % (11.0-15.5); WHITE BLOOD COUNT (AUTO) 9.1 K/uL (4.8-10.8)
[2017-10-12 05:45] LABS: CREATININE 6.1 mg/dL (0.5-1.5); POTASSIUM 4.7 mmol/L (3.5-5.1)
[2017-10-12] MEDS: INSULIN R PO SSI SQ SCH ×4 (06:42→21:00)
[2017-10-12] MEDS: BRIMONIDINE TARTRATE OU SCH ×2 (09:00→21:11)
[2017-10-12 09:24] VITALS: BP 142/65
[2017-10-12] MEDS: CINACALCET HCL 30 MG TAB PO SCH (11:27)
[2017-10-12] MEDS: FISH OIL 1000 MG/CAP PO SCH ×2 (11:27→21:10)
[2017-10-12] MEDS: DOCUSATE SODIUM 100 MG CAP PO SCH (11:27)
[2017-10-12] MEDS: AMLODIPINE BESYLATE 2.5 MG TAB PO SCH (11:27)
[2017-10-12] MEDS: FAMOTIDINE 20MG TAB 20 MG TAB PO SCH (11:27)
[2017-10-12] MEDS: LINAGLIPTIN 5 MG TABLET PO SCH (11:28)
[2017-10-12] MEDS: CARVEDILOL 6.25 MG TABLET PO SCH ×2 (11:29→21:11)
[2017-10-12] MEDS: FERROUS SULFATE 325 MG TABLET.DR PO SCH (11:32)
[2017-10-12] MEDS: PANTOPRAZOLE SODIUM 40 MG TABLET.DR PO SCH (11:33)
[2017-10-12] MEDS: INSULIN GLARGINE 100 UNITS/ML 10 ML VIAL SQ SCH (12:58)
[2017-10-12] MEDS: VANCOMYCIN 750MG + NS 250 ML IV NR ×2 (15:00)
[2017-10-12 17:20] LABS: APPEARANCE,URINE Clear (CLEAR); BILIRUBIN,URINE Negative (NEGATIVE); COLOR,URINE Dark Yellow (YELLOW); GLUCOSE, URINE (UA) TRACE mg/dL (NEGATIVE); KETONES,URINE Trace mg/dL (NEGATIVE); LEUKOCYTE ESTERASE ,URINE Small (NEGATIVE); NITRATE,URINE Negative (NEGATIVE); OCCULT BLOOD,URINE Negative (NEGATIVE); PH,URINE >=9.0 (5.0-8.0); PROTEIN,URINE 300 (NEGATIVE)
[2017-10-12 17:29] LABS: BACTERIA,URINE Rare /HPF (None Seen); RBC,URINE 0-1 /HPF (0-1); SQUAMOUS EPITHELIAL CELL,UR Rare /HPF (0-2)
[2017-10-12 17:39] VITALS: BP 122/62
[2017-10-12 19:32] VITALS: BP 144/81
[2017-10-12] MEDS: ATORVASTATIN CALCIUM 20 MG TABLET PO SCH (21:10)
[2017-10-12 23:29] VITALS: BP 128/62
[2017-10-13 03:41] VITALS: BP 131/66
[2017-10-13 04:57] LABS: HEMATOCRIT 29.8 % (42-54); MEAN CORPUSCULAR HEMOGLOBIN 31.3 pg (27.0-33.0); MEAN CORPUSCULAR HGB CONC 34.5 g/dL (32.0-36.0); MEAN CORPUSCULAR VOLUME 90.7 fL (79-99); PLATELET COUNT (AUTO) 143 K/uL (130-400); RED BLOOD CELL COUNT(AUTO) 3.28 MIL/uL (4.50-6.20); RED CELL DISTRIBUTION WIDTH 16.5 % (11.0-15.5); WHITE BLOOD COUNT (AUTO) 6.5 K/uL (4.8-10.8)
[2017-10-13] MEDS: EPOETIN ALFA 10,000 UNIT/ML VIAL SQ SCH (06:37)
[2017-10-13] MEDS: INSULIN R PO SSI SQ SCH ×4 (06:46→20:55)
[2017-10-13] MEDS: PANTOPRAZOLE SODIUM 40 MG TABLET.DR PO SCH (06:51)
[2017-10-13 08:00] VITALS: BP 132/62
[2017-10-13] MEDS: INSULIN GLARGINE 100 UNITS/ML 10 ML VIAL SQ SCH (09:00)
[2017-10-13] MEDS: LINAGLIPTIN 5 MG TABLET PO SCH (09:00)
[2017-10-13] MEDS: AMLODIPINE BESYLATE 2.5 MG TAB PO SCH (09:58)
[2017-10-13] MEDS: FAMOTIDINE 20MG TAB 20 MG TAB PO SCH (09:58)
[2017-10-13] MEDS: CINACALCET HCL 30 MG TAB PO SCH (09:58)
[2017-10-13] MEDS: FERROUS SULFATE 325 MG TABLET.DR PO SCH (09:58)
[2017-10-13] MEDS: CARVEDILOL 6.25 MG TABLET PO SCH ×2 (09:59→21:16)
[2017-10-13] MEDS: BRIMONIDINE TARTRATE OU SCH ×2 (10:02→21:16)
[2017-10-13 11:00] VITALS: BP 130/64
[2017-10-13] MEDS: ZOSYN 3.375GM+NS 50ML 50 ML IV SCH (12:30)
[2017-10-13] MEDS: DOCUSATE SODIUM 100 MG CAP PO SCH (15:57)
[2017-10-13] MEDS: FISH OIL 1000 MG/CAP PO SCH ×2 (15:58→21:15)
[2017-10-13] MEDS: VANCOMYCIN 750MG + NS 250 ML IV NR ×2 (15:58)
[2017-10-13 16:00] VITALS: BP 127/59
[2017-10-13 19:27] VITALS: BP 115/52
[2017-10-13] MEDS: ATORVASTATIN CALCIUM 20 MG TABLET PO SCH (21:15)
[2017-10-13 23:22] VITALS: BP 117/55
[2017-10-14] MEDS: ZOSYN 3.375GM+NS 50ML 50 ML IV SCH ×2 (00:05→11:56)
[2017-10-14 03:55] VITALS: BP 128/65
[2017-10-14] MEDS: INSULIN R PO SSI SQ SCH ×4 (06:06→21:00)
[2017-10-14] MEDS: PANTOPRAZOLE SODIUM 40 MG TABLET.DR PO SCH (06:37)
[2017-10-14 08:14] VITALS: BP 133/61
[2017-10-14] MEDS: BRIMONIDINE TARTRATE OU SCH ×2 (09:00→20:56)
[2017-10-14] MEDS: LINAGLIPTIN 5 MG TABLET PO SCH (09:16)
[2017-10-14] MEDS: FISH OIL 1000 MG/CAP PO SCH ×2 (09:16→20:55)
[2017-10-14] MEDS: AMLODIPINE BESYLATE 2.5 MG TAB PO SCH (09:16)
[2017-10-14] MEDS: FERROUS SULFATE 325 MG TABLET.DR PO SCH (09:16)
[2017-10-14] MEDS: FAMOTIDINE 20MG TAB 20 MG TAB PO SCH (09:16)
[2017-10-14] MEDS: CINACALCET HCL 30 MG TAB PO SCH (09:16)
[2017-10-14] MEDS: DOCUSATE SODIUM 100 MG CAP PO SCH (09:17)
[2017-10-14] MEDS: CARVEDILOL 6.25 MG TABLET PO SCH ×2 (09:17→20:55)
[2017-10-14] MEDS: INSULIN GLARGINE 100 UNITS/ML 10 ML VIAL SQ SCH (09:25)
[2017-10-14 12:05] VITALS: BP 134/64
[2017-10-14 15:46] VITALS: BP 140/64
[2017-10-14] MEDS: VANCOMYCIN 750MG + NS 250 ML IV NR ×2 (16:54)
[2017-10-14 19:23] VITALS: BP 143/75
[2017-10-14] MEDS: ATORVASTATIN CALCIUM 20 MG TABLET PO SCH (20:55)
[2017-10-14 23:36] VITALS: BP 118/58
[2017-10-15] MEDS: ZOSYN 3.375GM+NS 50ML 50 ML IV SCH ×3 (00:09→23:51)
[2017-10-15 03:32] VITALS: BP 128/65
[2017-10-15 05:49] LABS: HEMATOCRIT 30.6 % (42-54); MEAN CORPUSCULAR HEMOGLOBIN 32.2 pg (27.0-33.0); MEAN CORPUSCULAR HGB CONC 34.8 g/dL (32.0-36.0); MEAN CORPUSCULAR VOLUME 92.3 fL (79-99); NUCLEATED RED BLOOD CELLS 0.1 % (0.0-0.19); PLATELET COUNT (AUTO) 149 K/uL (130-400); RED BLOOD CELL COUNT(AUTO) 3.32 MIL/uL (4.50-6.20); RED CELL DISTRIBUTION WIDTH 17.1 % (11.0-15.5); WHITE BLOOD COUNT (AUTO) 6.8 K/uL (4.8-10.8)
[2017-10-15] MEDS: INSULIN R PO SSI SQ SCH ×4 (06:39→20:53)
[2017-10-15] MEDS: PANTOPRAZOLE SODIUM 40 MG TABLET.DR PO SCH (06:50)
[2017-10-15 07:51] VITALS: BP 150/72
[2017-10-15 07:54] LABS: BASOPHILS % (MANUAL) 1 % (0-2); EOSINOPHILS % (MANUAL) 30 % (1-6); LYMPHOCYTES % (MANUAL) 10 % (22-44); MAN.DIFF COMMENT-IMPRESSION MANUAL DIFFERENTIAL; MONOCYTES % (MANUAL) 7 % (2-9); SEGMENTED NEUTROPHILS % 52 % (40-70)
[2017-10-15 07:55] LABS: PLATELET MORPHOLOGY COMMENT ADEQUATE
[2017-10-15] MEDS: INSULIN GLARGINE 100 UNITS/ML 10 ML VIAL SQ SCH (09:00)
[2017-10-15] MEDS: BRIMONIDINE TARTRATE OU SCH ×2 (09:00→20:54)
[2017-10-15] MEDS: DOCUSATE SODIUM 100 MG CAP PO SCH (11:24)
[2017-10-15] MEDS: AMLODIPINE BESYLATE 2.5 MG TAB PO SCH (11:26)
[2017-10-15] MEDS: FAMOTIDINE 20MG TAB 20 MG TAB PO SCH (11:26)
[2017-10-15] MEDS: CINACALCET HCL 30 MG TAB PO SCH (11:26)
[2017-10-15] MEDS: LINAGLIPTIN 5 MG TABLET PO SCH (11:26)
[2017-10-15] MEDS: CARVEDILOL 6.25 MG TABLET PO SCH ×2 (11:27→20:53)
[2017-10-15] MEDS: FISH OIL 1000 MG/CAP PO SCH ×2 (11:28→20:52)
[2017-10-15 12:05] VITALS: BP 154/74
[2017-10-15] MEDS: FERROUS SULFATE 325 MG TABLET.DR PO SCH (12:07)
[2017-10-15] MEDS: VANCOMYCIN 750MG + NS 250 ML IV NR ×2 (16:13)
[2017-10-15 16:17] VITALS: BP 129/57
[2017-10-15] MEDS: EPOETIN ALFA 10,000 UNIT/ML VIAL SQ SCH (18:17)
[2017-10-15 19:42] VITALS: BP 133/67
[2017-10-15] MEDS: ATORVASTATIN CALCIUM 20 MG TABLET PO SCH (20:52)
[2017-10-16] VITALS (7 sets, daily range): BP systolic 114–144; BP diastolic 56–75
[2017-10-16 05:10] LABS: MEAN CORPUSCULAR HEMOGLOBIN 30.8 pg (27.0-33.0); MEAN CORPUSCULAR HGB CONC 33.8 g/dL (32.0-36.0); MEAN CORPUSCULAR VOLUME 91.2 fL (79-99); PLATELET COUNT (AUTO) 121 K/uL (130-400); RED BLOOD CELL COUNT(AUTO) 3.51 MIL/uL (4.50-6.20); RED CELL DISTRIBUTION WIDTH 17.4 % (11.0-15.5); WHITE BLOOD COUNT (AUTO) 5.8 K/uL (4.8-10.8)
[2017-10-16 05:12] LABS: POTASSIUM 4.2 mmol/L (3.5-5.1)
[2017-10-16] MEDS: PANTOPRAZOLE SODIUM 40 MG TABLET.DR PO SCH (06:08)
[2017-10-16] MEDS: INSULIN R PO SSI SQ SCH ×4 (06:08→21:00)
[2017-10-16] MEDS: BRIMONIDINE TARTRATE OU SCH ×2 (09:00→21:00)
[2017-10-16] MEDS: AMLODIPINE BESYLATE 2.5 MG TAB PO SCH (10:27)
[2017-10-16] MEDS: DOCUSATE SODIUM 100 MG CAP PO SCH (10:27)
[2017-10-16] MEDS: FAMOTIDINE 20MG TAB 20 MG TAB PO SCH (10:27)
[2017-10-16] MEDS: CINACALCET HCL 30 MG TAB PO SCH (10:27)
[2017-10-16] MEDS: CARVEDILOL 6.25 MG TABLET PO SCH ×2 (10:27→21:31)
[2017-10-16] MEDS: FISH OIL 1000 MG/CAP PO SCH ×2 (10:28→21:30)
[2017-10-16] MEDS: INSULIN GLARGINE 100 UNITS/ML 10 ML VIAL SQ SCH (10:31)
[2017-10-16] MEDS: LINAGLIPTIN 5 MG TABLET PO SCH (10:33)
[2017-10-16] MEDS: FERROUS SULFATE 325 MG TABLET.DR PO SCH (10:33)
[2017-10-16] MEDS: ZOSYN 3.375GM+NS 50ML 50 ML IV SCH (13:20)
[2017-10-16] MEDS: VANCOMYCIN 750MG + NS 250 ML IV NR ×2 (15:00)
[2017-10-16] MEDS: ATORVASTATIN CALCIUM 20 MG TABLET PO SCH (21:30)
[2017-10-17] MEDS: ZOSYN 3.375GM+NS 50ML 50 ML IV SCH ×2 (00:26→13:23)
[2017-10-17 04:00] VITALS: BP 144/70
[2017-10-17] MEDS: INSULIN R PO SSI SQ SCH ×3 (06:36→20:29)
[2017-10-17] MEDS: INSULIN GLARGINE 100 UNITS/ML 10 ML VIAL SQ SCH (07:43)
[2017-10-17] MEDS: LINAGLIPTIN 5 MG TABLET PO SCH (07:43)
[2017-10-17 08:13] VITALS: BP 168/84
[2017-10-17] MEDS: BRIMONIDINE TARTRATE OU SCH ×2 (09:00→20:32)
[2017-10-17] MEDS: DOCUSATE SODIUM 100 MG CAP PO SCH (10:39)
[2017-10-17] MEDS: PANTOPRAZOLE SODIUM 40 MG TABLET.DR PO SCH (10:39)
[2017-10-17] MEDS: FERROUS SULFATE 325 MG TABLET.DR PO SCH (10:39)
[2017-10-17] MEDS: CARVEDILOL 6.25 MG TABLET PO SCH ×2 (10:40→20:31)
[2017-10-17] MEDS: FAMOTIDINE 20MG TAB 20 MG TAB PO SCH (10:40)
[2017-10-17] MEDS: CINACALCET HCL 30 MG TAB PO SCH (10:40)
[2017-10-17] MEDS: AMLODIPINE BESYLATE 2.5 MG TAB PO SCH (10:40)
[2017-10-17] MEDS: FISH OIL 1000 MG/CAP PO SCH ×2 (10:40→20:31)
[2017-10-17 11:36] VITALS: BP 160/81
[2017-10-17] MEDS: VANCOMYCIN 750MG + NS 250 ML IV NR ×2 (15:00)
[2017-10-17 15:57] VITALS: BP 125/71
[2017-10-17 20:00] VITALS: BP 133/67
[2017-10-17] MEDS: ATORVASTATIN CALCIUM 20 MG TABLET PO SCH (20:31)
[2017-10-18] VITALS (7 sets, daily range): BP systolic 112–141; BP diastolic 50–70
[2017-10-18] MEDS: ZOSYN 3.375GM+NS 50ML 50 ML IV SCH ×2 (00:03→12:15)
[2017-10-18 05:12] LABS: BASOPHILS % (AUTO) 1.5 % (0.0-5.0); EOSINOPHILS % (AUTO) 23.6 % (0.0-8.0); HEMATOCRIT 32.7 % (42-54); LYMPHOCYTES % (AUTO) 10.4 % (21.0-51.0); MEAN CORPUSCULAR HEMOGLOBIN 30.8 pg (27.0-33.0); MEAN CORPUSCULAR HGB CONC 33.8 g/dL (32.0-36.0); MEAN CORPUSCULAR VOLUME 91.3 fL (79-99); MONOCYTES % (AUTO) 10.2 % (3.0-13.0); NEUTROPHILS % (AUTO) 54.3 % (40.0-77.0); PLATELET COUNT (AUTO) 108 K/uL (130-400); RED BLOOD CELL COUNT(AUTO) 3.58 MIL/uL (4.50-6.20); RED CELL DISTRIBUTION WIDTH 17.9 % (11.0-15.5); WHITE BLOOD COUNT (AUTO) 5.5 K/uL (4.8-10.8)
[2017-10-18 05:17] LABS: CREATININE 5.2 mg/dL (0.5-1.5); INR 1.09 (0.85-1.15); POTASSIUM 4.1 mmol/L (3.5-5.1); PROTHROMBIN TIME 11.4 SEC (9.6-11.6)
[2017-10-18] MEDS ORDERED: CEFUROXIME SODIUM 1.5 GM VIAL IVP SCH (06:00)
[2017-10-18] MEDS: INSULIN R PO SSI SQ SCH ×4 (06:08→21:18)
[2017-10-18] MEDS: PANTOPRAZOLE SODIUM 40 MG TABLET.DR PO SCH (06:49)
[2017-10-18] MEDS: LINAGLIPTIN 5 MG TABLET PO SCH (07:56)
[2017-10-18] MEDS: INSULIN GLARGINE 100 UNITS/ML 10 ML VIAL SQ SCH (07:56)
[2017-10-18] MEDS: FAMOTIDINE 20MG TAB 20 MG TAB PO SCH (08:47)
[2017-10-18] MEDS: CARVEDILOL 6.25 MG TABLET PO SCH ×2 (08:47→20:27)
[2017-10-18] MEDS: AMLODIPINE BESYLATE 2.5 MG TAB PO SCH (08:47)
[2017-10-18] MEDS: DOCUSATE SODIUM 100 MG CAP PO SCH (08:47)
[2017-10-18] MEDS: FERROUS SULFATE 325 MG TABLET.DR PO SCH (08:47)
[2017-10-18] MEDS: FISH OIL 1000 MG/CAP PO SCH ×2 (08:47→20:25)
[2017-10-18] MEDS: CINACALCET HCL 30 MG TAB PO SCH (08:48)
[2017-10-18] MEDS: BRIMONIDINE TARTRATE OU SCH ×2 (08:51→20:27)
[2017-10-18] MEDS ORDERED: CEFUROXIME 1.5GM+NS 100ML 100 ML IV SCH (11:00)
[2017-10-18] MEDS: ATORVASTATIN CALCIUM 20 MG TABLET PO SCH (20:25)
[2017-10-19] MEDS: ZOSYN 3.375GM+NS 50ML 50 ML IV SCH ×2 (00:01→12:08)
[2017-10-19 03:35] VITALS: BP 125/64
[2017-10-19] MEDS: INSULIN R PO SSI SQ SCH ×2 (06:36→11:30)
[2017-10-19] MEDS: PANTOPRAZOLE SODIUM 40 MG TABLET.DR PO SCH (06:56)
[2017-10-19 08:00] VITALS: BP 143/71
[2017-10-19] MEDS: BRIMONIDINE TARTRATE OU SCH (09:00)
[2017-10-19] MEDS: EPOETIN ALFA 10,000 UNIT/ML VIAL SQ SCH ×2 (09:00→12:18)
[2017-10-19] MEDS: INSULIN GLARGINE 100 UNITS/ML 10 ML VIAL SQ SCH (09:00)
[2017-10-19] MEDS: LINAGLIPTIN 5 MG TABLET PO SCH (09:00)
[2017-10-19] MEDS: FAMOTIDINE 20MG TAB 20 MG TAB PO SCH (09:00)
[2017-10-19 11:28] VITALS: BP 168/86
[2017-10-19] MEDS: FERROUS SULFATE 325 MG TABLET.DR PO SCH (12:06)
[2017-10-19] MEDS: DOCUSATE SODIUM 100 MG CAP PO SCH (12:06)
[2017-10-19] MEDS: FISH OIL 1000 MG/CAP PO SCH (12:07)
[2017-10-19] MEDS: AMLODIPINE BESYLATE 2.5 MG TAB PO SCH (12:07)
[2017-10-19] MEDS: CARVEDILOL 6.25 MG TABLET PO SCH (12:07)
[2017-10-19] MEDS: CINACALCET HCL 30 MG TAB PO SCH (12:08)
[2017-10-19] MEDS ORDERED: ASPIRIN 81MG TAB.CHEW ONE (12:28)
[2017-10-19 16:00] VITALS: BP 137/68
[2017-10-21] MEDS ORDERED: VANCOMYCIN 500MG+NS 100ML 100 ML IV NR (15:00)
== END 2017-10-19 17:56 | DRG 299 ==
LOC: EDH 10:42 → EDHIP 10:43 → 3DH 17:36
PROVIDERS: ADMIT Family Medicine; ATTEND Family Medicine
PROC: 5A1D70Z Performance of Urinary Filtration, Intermittent, Less than 6 Hours Per Day (ICD-10-PCS; 2017-10-09)
PROC: B41D1ZZ Fluoroscopy of Aorta and Bilateral Lower Extremity Arteries using Low Osmolar Contrast (ICD-10-PCS; principal; 2017-10-10)
PROC: B41F1ZZ Fluoroscopy of Right Lower Extremity Arteries using Low Osmolar Contrast (ICD-10-PCS; 2017-10-10)
PROC: 5A1D70Z Performance of Urinary Filtration, Intermittent, Less than 6 Hours Per Day (ICD-10-PCS; 2017-10-10)
PROC: 5A1D70Z Performance of Urinary Filtration, Intermittent, Less than 6 Hours Per Day (ICD-10-PCS; 2017-10-12)
PROC: 5A1D70Z Performance of Urinary Filtration, Intermittent, Less than 6 Hours Per Day (ICD-10-PCS; 2017-10-18)
PROC: 5A1D70Z Performance of Urinary Filtration, Intermittent, Less than 6 Hours Per Day (ICD-10-PCS; 2017-10-19)
DX: E11.52 Type 2 diabetes mellitus with diabetic peripheral angiopathy with gangrene (principal); N18.6 End stage renal disease; I13.2 Hypertensive heart and chronic kidney disease with heart failure and with stage 5 chronic kidney disease, or end stage renal disease; E11.21 Type 2 diabetes mellitus with diabetic nephropathy; E11.621 Type 2 diabetes mellitus with foot ulcer; M86.679 Other chronic osteomyelitis, unspecified ankle and foot; I50.22 Chronic systolic (congestive) heart failure; L97.429 Non-pressure chronic ulcer of left heel and midfoot with unspecified severity; E11.69 Type 2 diabetes mellitus with other specified complication; L97.529 Non-pressure chronic ulcer of other part of left foot with unspecified severity; E11.22 Type 2 diabetes mellitus with diabetic chronic kidney disease; L97.519 Non-pressure chronic ulcer of other part of right foot with unspecified severity; I25.10 Atherosclerotic heart disease of native coronary artery without angina pectoris; D64.9 Anemia, unspecified; F03.90 Unspecified dementia, unspecified severity, without behavioral disturbance, psychotic disturbance, mood disturbance, and anxiety; Z95.5 Presence of coronary angioplasty implant and graft; Z95.1 Presence of aortocoronary bypass graft; Z99.2 Dependence on renal dialysis; Z89.412 Acquired absence of left great toe
CPT/HCPCS: 36247; 36415; 36430; 71046; 73630; 75710; 80048; 80053; 80202; 81001; 82550; 82553; 82607; 82746; 82947; 82948; 83036; 83540; 83550; 83874; 84100; 84484; 85014; 85018; 85025; 85027; 85347; 85576; 85610; 85730; 86850; 86900; 86901; 86922; 90935; 93005; 99152; 99153; A4218; C1760; C1769; C1893; C1894; J0697; J0885; J1644; J1815; J2250; J2543; J3010; J3370; J3490; J7030; P9016; P9046; Q9967

== ENCOUNTER 2017-11-14 07:30 | Inpatient (IN) | payer MEDICARE ==
[2017-11-12 10:45] VITALS: BP 145/68
[2017-11-12 11:28] LABS: BASOPHILS % (AUTO) 0.9 % (0.0-5.0); EOSINOPHILS % (AUTO) 5.8 % (0.0-8.0); HEMATOCRIT 33.3 % (42-54); LYMPHOCYTES % (AUTO) 11.8 % (21.0-51.0); MEAN CORPUSCULAR HEMOGLOBIN 30.7 pg (27.0-33.0); MEAN CORPUSCULAR HGB CONC 34.2 g/dL (32.0-36.0); MEAN CORPUSCULAR VOLUME 89.6 fL (79-99); MONOCYTES % (AUTO) 7.6 % (3.0-13.0); NEUTROPHILS % (AUTO) 73.9 % (40.0-77.0); PLATELET COUNT (AUTO) 200 K/uL (130-400); RED BLOOD CELL COUNT(AUTO) 3.71 MIL/uL (4.50-6.20); RED CELL DISTRIBUTION WIDTH 18.2 % (11.0-15.5); WHITE BLOOD COUNT (AUTO) 6.1 K/uL (4.8-10.8)
[2017-11-12 11:36] LABS: HEMOGLOBIN A1C 5.6 % (4.0-6.0)
[2017-11-12 11:50] LABS: ALBUMIN 2.5 g/dL (3.5-5.0); BILIRUBIN,TOTAL 0.4 mg/dL (0.2-1.0); CREATININE 6.9 mg/dL (0.5-1.5); INR 1.04 (0.85-1.15); PARTIAL THROMBOPLASTIN TIME 29.6 SEC (26.3-35.5); PROTHROMBIN TIME 10.9 SEC (9.6-11.6); TOTAL PROTEIN, SERUM 8.2 g/dL (6.0-8.3)
[2017-11-12 12:37] LABS: PLATELET COUNT (AUTO) 231 K/uL (130-400)
[2017-11-12 12:56] LABS: POTASSIUM 5.2 mmol/L (3.5-5.1)
[2017-11-12 13:31] LABS: PLATELET FUNCTION ANALYSIS EPI > 192 SEC (55-192)
[2017-11-12 13:40] LABS: PLATELET FUNCTION ANALYSIS ADP > 100 SEC (62-100)
[~2017-11-14] VITALS: Ht 180.3 cm; Wt 68.1 kg
[2017-11-14] VITALS (14 sets, daily range): BP systolic 122–170; BP diastolic 55–80
[~2017-11-14 07:30] MED LIST changes: -HYDR-309 PO
[2017-11-14] MEDS ORDERED: DEXTROSE 50%-WATER 50 ML DISP.SYRIN IV ONE (08:56)
[2017-11-14] MEDS ORDERED: SODIUM CHLORIDE 0.9% 1000ML 1,000 ML IV ONE (08:56)
[2017-11-14] MEDS: CEFUROXIME SODIUM 1.5 GM VIAL IVP ONE ×2 (09:18→13:55)
[2017-11-14] MEDS ORDERED: THROMBIN-JMI 5000 UNIT/VIAL TP ONE (11:52)
[2017-11-14] MEDS ORDERED: DEXAMETHASONE SOD PHOSPHATE 10MG/ML 1ML VIAL ONE (13:25)
[2017-11-14] MEDS ORDERED: ONDANSETRON HCL 4 MG/2 ML VIAL ONE (13:26)
[2017-11-14] MEDS ORDERED: LIDOCAINE PF 2% 5ML ABBOJECT ONE (13:26)
[2017-11-14] MEDS ORDERED: GLYCOPYRROLATE 0.2 MG/ML 5 ML VIAL ONE (13:26)
[2017-11-14] MEDS ORDERED: PROPOFOL 10 MG/ML 20ML VIAL IV ONE (13:27)
[2017-11-14] MEDS ORDERED: FENTANYL CITRATE PF 50 MCG/1 ML 2ML VIAL ONE (13:27)
[2017-11-14] MEDS ORDERED: MIDAZOLAM HCL 1 MG/ML 2ML VIAL ONE (13:27)
[2017-11-14] MEDS ORDERED: PAPAVERINE HCL 30 MG/ML 2ML VIAL ONE (13:30)
[2017-11-14] MEDS ORDERED: BACITRACIN 50,000 UNIT VIAL ONE (13:31)
[2017-11-14] MEDS ORDERED: OCTYL 2-CYANOACRYLATE 1 EACH TP ONE (13:31)
[2017-11-14] MEDS ORDERED: MAGNESIUM HYDROXIDE 30 ML/UDCUP PO PRN (14:30)
[2017-11-14] MEDS ORDERED: MORPHINE SULFATE 2 MG/ML 1ML SYG IVP PRN (14:30)
[2017-11-14] MEDS ORDERED: ACETAMINOPHEN 325 MG TAB PO PRN (14:30)
[2017-11-14] MEDS: CALCIUM ACETATE 667 MG CAPSULE PO SCH (17:00)
[2017-11-14] MEDS: BRIMONIDINE TARTRATE OU SCH (19:07)
[2017-11-14] MEDS: TRAMADOL HCL 50 MG TABLET PO PRN ×2 (19:28→22:07)
[2017-11-14] MEDS ORDERED: CEFUROXIME 1.5GM+NS 100ML 100 ML IV SCH (22:30)
[2017-11-14] MEDS: ATORVASTATIN CALCIUM 20 MG TABLET PO SCH (22:32)
[2017-11-14] MEDS: CARVEDILOL 6.25 MG TABLET PO SCH (22:32)
[2017-11-14] MEDS: CEFUROXIME SODIUM 1.5 GM VIAL IVP SCH (22:32)
[2017-11-15] VITALS (13 sets, daily range): BP systolic 122–137; BP diastolic 51–80
[2017-11-15 03:50] LABS: HEMATOCRIT 26.8 % (42-54); MEAN CORPUSCULAR HEMOGLOBIN 29.9 pg (27.0-33.0); MEAN CORPUSCULAR VOLUME 88.2 fL (79-99); PLATELET COUNT (AUTO) 187 K/uL (130-400); RED BLOOD CELL COUNT(AUTO) 3.04 MIL/uL (4.50-6.20); RED CELL DISTRIBUTION WIDTH 17.6 % (11.0-15.5); WHITE BLOOD COUNT (AUTO) 6.5 K/uL (4.8-10.8)
[2017-11-15 04:00] LABS: CREATININE 6.8 mg/dL (0.5-1.5); POTASSIUM 5.8 mmol/L (3.5-5.1)
[2017-11-15] MEDS: TRAMADOL HCL 50 MG TABLET PO PRN ×2 (06:07→10:57)
[2017-11-15] MEDS ORDERED: NON-FORMULARY MEDICATION 1 EACH (Omeprazole 20 MG) PO SCH (07:30)
[2017-11-15] MEDS: CALCIUM ACETATE 667 MG CAPSULE PO SCH ×3 (08:00→17:57)
[2017-11-15] MEDS: FERROUS SULFATE 325 MG TABLET.DR PO SCH (09:00)
[2017-11-15] MEDS: FISH OIL 1000 MG/CAP PO SCH ×2 (09:00→23:40)
[2017-11-15] MEDS: CINACALCET HCL 30 MG TAB PO SCH (09:00)
[2017-11-15] MEDS: BRIMONIDINE TARTRATE OU SCH ×2 (09:00→23:40)
[2017-11-15] MEDS: INSULIN GLARGINE 100 UNITS/ML 10 ML VIAL SQ SCH (09:00)
[2017-11-15] MEDS: LINAGLIPTIN 5 MG TABLET PO SCH (10:57)
[2017-11-15] MEDS: AMLODIPINE BESYLATE 2.5 MG TAB PO SCH (10:57)
[2017-11-15] MEDS: ASPIRIN 81 MG EC TAB PO SCH (10:58)
[2017-11-15] MEDS: CARVEDILOL 6.25 MG TABLET PO SCH ×2 (10:58→23:40)
[2017-11-15] MEDS: PANTOPRAZOLE SODIUM 40 MG TABLET.DR PO SCH (10:58)
[2017-11-15] MEDS: CEFUROXIME SODIUM 1.5 GM VIAL IVP SCH ×2 (10:59→23:37)
[2017-11-15] MEDS: DOCUSATE SODIUM 100 MG CAP PO SCH (13:38)
[2017-11-15] MEDS: CLOPIDOGREL BISULFATE 75 MG TAB PO SCH (13:38)
[2017-11-15] MEDS ORDERED: SODIUM POLYSTYRENE SULFONATE 15 GM/60 ML ML PO ONE (17:00)
[2017-11-15] MEDS: ATORVASTATIN CALCIUM 20 MG TABLET PO SCH (23:39)
[2017-11-16] VITALS (18 sets, daily range): BP systolic 120–153; BP diastolic 51–80
[2017-11-16] MEDS ORDERED: 0.9% SODIUM CHLORIDE 250 ML IV BAG IV PRN (00:15)
[2017-11-16 03:47] LABS: HEMATOCRIT 27.6 % (42-54); MEAN CORPUSCULAR HEMOGLOBIN 30.6 pg (27.0-33.0); MEAN CORPUSCULAR HGB CONC 34.7 g/dL (32.0-36.0); MEAN CORPUSCULAR VOLUME 88.3 fL (79-99); PLATELET COUNT (AUTO) 163 K/uL (130-400); RED BLOOD CELL COUNT(AUTO) 3.12 MIL/uL (4.50-6.20); RED CELL DISTRIBUTION WIDTH 17.5 % (11.0-15.5); WHITE BLOOD COUNT (AUTO) 5.2 K/uL (4.8-10.8)
[2017-11-16] MEDS: TRAMADOL HCL 50 MG TABLET PO PRN ×2 (04:12→05:11)
[2017-11-16 04:18] LABS: CREATININE 4.2 mg/dL (0.5-1.5); PHOSPHORUS 3.2 mg/dL (2.5-4.9); POTASSIUM 4.3 mmol/L (3.5-5.1)
[2017-11-16] MEDS: CALCIUM ACETATE 667 MG CAPSULE PO SCH ×3 (08:00→16:21)
[2017-11-16] MEDS: BRIMONIDINE TARTRATE OU SCH ×2 (09:00→21:00)
[2017-11-16] MEDS: INSULIN GLARGINE 100 UNITS/ML 10 ML VIAL SQ SCH (09:00)
[2017-11-16] MEDS ORDERED: LIDOCAINE HCL 1% 20 ML VIAL ONE (12:46)
[2017-11-16] MEDS ORDERED: BUPIVACAINE/PF 0.5% 30ML VIAL ONE (12:46)
[2017-11-16] MEDS ORDERED: MIDAZOLAM HCL 1 MG/ML 2ML VIAL ONE (12:55)
[2017-11-16] MEDS: PANTOPRAZOLE SODIUM 40 MG TABLET.DR PO SCH (15:01)
[2017-11-16] MEDS: FERROUS SULFATE 325 MG TABLET.DR PO SCH (15:02)
[2017-11-16] MEDS: CARVEDILOL 6.25 MG TABLET PO SCH ×2 (15:02→21:48)
[2017-11-16] MEDS: DOCUSATE SODIUM 100 MG CAP PO SCH (15:03)
[2017-11-16] MEDS: CLOPIDOGREL BISULFATE 75 MG TAB PO SCH (15:03)
[2017-11-16] MEDS: LINAGLIPTIN 5 MG TABLET PO SCH (15:03)
[2017-11-16] MEDS: AMLODIPINE BESYLATE 2.5 MG TAB PO SCH (15:03)
[2017-11-16] MEDS: ASPIRIN 81 MG EC TAB PO SCH (15:03)
[2017-11-16] MEDS: CINACALCET HCL 30 MG TAB PO SCH (15:03)
[2017-11-16] MEDS: FISH OIL 1000 MG/CAP PO SCH ×2 (15:04→21:47)
[2017-11-16] MEDS ORDERED: MORPHINE SULFATE 2 MG/ML 1ML SYG IVP PRN (17:30)
[2017-11-16] MEDS ORDERED: ONDANSETRON HCL MDV 20ML 2 MG/ML VIAL IVP PRN (20:45)
[2017-11-16] MEDS: ATORVASTATIN CALCIUM 20 MG TABLET PO SCH (21:48)
[2017-11-17 03:29] VITALS: BP 131/66
[2017-11-17 03:55] LABS: HEMATOCRIT 26.5 % (42-54); MEAN CORPUSCULAR HEMOGLOBIN 29.9 pg (27.0-33.0); MEAN CORPUSCULAR HGB CONC 33.5 g/dL (32.0-36.0); PLATELET COUNT (AUTO) 156 K/uL (130-400); RED BLOOD CELL COUNT(AUTO) 2.98 MIL/uL (4.50-6.20); RED CELL DISTRIBUTION WIDTH 17.9 % (11.0-15.5); WHITE BLOOD COUNT (AUTO) 5.4 K/uL (4.8-10.8)
[2017-11-17 04:11] LABS: CREATININE 5.6 mg/dL (0.5-1.5); POTASSIUM 5.4 mmol/L (3.5-5.1)
[2017-11-17 07:00] VITALS: BP 140/74
[2017-11-17] MEDS: DOCUSATE SODIUM 100 MG CAP PO SCH (08:44)
[2017-11-17] MEDS: CARVEDILOL 6.25 MG TABLET PO SCH (08:45)
[2017-11-17] MEDS: FISH OIL 1000 MG/CAP PO SCH (08:45)
[2017-11-17] MEDS: PANTOPRAZOLE SODIUM 40 MG TABLET.DR PO SCH (08:51)
[2017-11-17] MEDS: FERROUS SULFATE 325 MG TABLET.DR PO SCH (08:51)
[2017-11-17] MEDS: CLOPIDOGREL BISULFATE 75 MG TAB PO SCH (08:51)
[2017-11-17] MEDS: ASPIRIN 81 MG EC TAB PO SCH (08:51)
[2017-11-17] MEDS: CALCIUM ACETATE 667 MG CAPSULE PO SCH ×2 (08:51→13:42)
[2017-11-17] MEDS: LINAGLIPTIN 5 MG TABLET PO SCH (08:51)
[2017-11-17] MEDS: AMLODIPINE BESYLATE 2.5 MG TAB PO SCH (08:52)
[2017-11-17] MEDS: CINACALCET HCL 30 MG TAB PO SCH (08:52)
[2017-11-17] MEDS: BRIMONIDINE TARTRATE OU SCH (08:52)
[2017-11-17] MEDS: INSULIN GLARGINE 100 UNITS/ML 10 ML VIAL SQ SCH (09:04)
[2017-11-17] MEDS ORDERED: SODIUM CHLORIDE 0.9% 1000ML 1,000 ML IV ONE (10:07)
[2017-11-17 11:00] VITALS: BP 149/77
[2017-11-17] MEDS ORDERED: SODIUM CHLORIDE 0.9% 1000ML 1,000 ML IV PRN (11:15)
[2017-11-17] MEDS ORDERED: ALBUMIN (HUMAN) 25% 100 ML IV PRN (11:15)
[2017-11-17] MEDS ORDERED: 0.9% SODIUM CHLORIDE 250 ML IV BAG IV PRN (11:15)
[2017-11-17 15:30] VITALS: BP 134/55
== END 2017-11-17 16:30 | DRG 252 ==
LOC: DAHIP 07:32 → 2CH 16:32 → 2AH 11-15 16:45
PROVIDERS: ADMIT Thoracic Surgery (Cardiothoracic Vascular Surgery); ATTEND Thoracic Surgery (Cardiothoracic Vascular Surgery)
PROC: 041M09Q Bypass Right Popliteal Artery to Lower Extremity Artery with Autologous Venous Tissue, Open Approach (ICD-10-PCS; principal; 2017-11-14 14:15)
PROC: 5A1D70Z Performance of Urinary Filtration, Intermittent, Less than 6 Hours Per Day (ICD-10-PCS; 2017-11-15)
PROC: 0Y6P0Z1 Detachment at Right 1st Toe, High, Open Approach (ICD-10-PCS; 2017-11-16)
PROC: 5A1D70Z Performance of Urinary Filtration, Intermittent, Less than 6 Hours Per Day (ICD-10-PCS; 2017-11-17)
DX: E11.52 Type 2 diabetes mellitus with diabetic peripheral angiopathy with gangrene (principal); N18.6 End stage renal disease; E11.42 Type 2 diabetes mellitus with diabetic polyneuropathy; E11.21 Type 2 diabetes mellitus with diabetic nephropathy; E87.5 Hyperkalemia; M86.669 Other chronic osteomyelitis, unspecified tibia and fibula; M86.671 Other chronic osteomyelitis, right ankle and foot; I12.0 Hypertensive chronic kidney disease with stage 5 chronic kidney disease or end stage renal disease; L97.409 Non-pressure chronic ulcer of unspecified heel and midfoot with unspecified severity; E11.69 Type 2 diabetes mellitus with other specified complication; F03.90 Unspecified dementia, unspecified severity, without behavioral disturbance, psychotic disturbance, mood disturbance, and anxiety; L97.519 Non-pressure chronic ulcer of other part of right foot with unspecified severity; D64.9 Anemia, unspecified; E11.22 Type 2 diabetes mellitus with diabetic chronic kidney disease; E11.621 Type 2 diabetes mellitus with foot ulcer; E78.5 Hyperlipidemia, unspecified; I25.10 Atherosclerotic heart disease of native coronary artery without angina pectoris; I99.8 Other disorder of circulatory system; K21.9 Gastro-esophageal reflux disease without esophagitis; Z87.891 Personal history of nicotine dependence; Z89.411 Acquired absence of right great toe; Z91.19 Patient's noncompliance with other medical treatment and regimen; Z99.2 Dependence on renal dialysis
CPT/HCPCS: 36415; 71046; 80048; 80053; 82948; 83036; 84100; 84132; 85025; 85027; 85576; 85610; 85730; 86850; 86900; 86901; 86922; 88304; 88305; 88311; 90935; 93005; 97039; A4218; J0697; J1100; J1644; J2001; J2250; J2405; J2440; J2704; J3010; J3490; J7030; J7040; J7070

== ENCOUNTER 2017-11-24 21:29 | Inpatient (IN) | payer MEDICARE ==
[~2017-11-24] VITALS: Ht 172.7 cm; Wt 63.7 kg
[2017-11-24] MEDS ORDERED: DOPAMINE HCL 400 MG/D5%-WATER 250 ML IV ONE (22:18)
[2017-11-24 22:35] LABS: MEAN CORPUSCULAR HEMOGLOBIN 30.5 pg (27.0-33.0); MEAN CORPUSCULAR HGB CONC 32.7 g/dL (32.0-36.0); MEAN CORPUSCULAR VOLUME 93.4 fL (79-99); PLATELET COUNT (AUTO) 90 K/uL (130-400); RED BLOOD CELL COUNT(AUTO) 1.22 MIL/uL (4.50-6.20); RED CELL DISTRIBUTION WIDTH 18.2 % (11.0-15.5); WHITE BLOOD COUNT (AUTO) 3.9 K/uL (4.8-10.8)
[2017-11-24 22:38] LABS: INR 1.19 (0.85-1.15); PARTIAL THROMBOPLASTIN TIME 36.8 SEC (26.3-35.5); PROTHROMBIN TIME 12.5 SEC (9.6-11.6)
[2017-11-24 22:40] LABS: HEMATOCRIT 11.4 % (42-54)
[2017-11-24] MEDS ORDERED: ZOSYN 3.375GM+NS 50ML 50 ML IV ONE (22:41)
[2017-11-24 22:44] LABS: CARBON DIOXIDE 19 mmol/L (21-32); CHLORIDE 109 mmol/L (101-111); CREATININE 1.7 mg/dL (0.5-1.5); GLOMERULAR FILTR. RATE CALC 42 mL/min (>60); GLUCOSE,RANDOM 126 mg/dL (70-105); POTASSIUM 4.8 mmol/L (3.5-5.1); SODIUM SERUM 149 mmol/L (136-145); UREA NITROGEN, BLOOD 14 mg/dL (7-18)
[2017-11-24] MEDS ORDERED: VANCOMYCIN 1GM+NS 250ML 250 ML IV ONE (22:52)
[2017-11-24 23:02] LABS: ALANINE AMINOTRANSFERASE 9 U/L (12-78); ALBUMIN 1.3 g/dL (3.5-5.0); ASPARTATE AMINOTRANSFERASE 21 U/L (10-37); BILIRUBIN,TOTAL 0.2 mg/dL (0.2-1.0); CREATINE KINASE MB 0.7 ng/mL (0.5-3.6); CREATINE KINASE, TOTAL 19 U/L (21-232); MYOGLOBIN 131 ng/mL (10-92); TOTAL PROTEIN, SERUM 4.4 g/dL (6.0-8.3); TROPONIN I < 0.04 ng/mL (0.00-0.06)
[2017-11-24] MEDS ORDERED: ONDANSETRON HCL 4 MG/2 ML VIAL ONE ×2 (23:05→23:23)
[2017-11-24] MEDS ORDERED: SODIUM BICARB [NEONATAL] 4.2% 10ML SYG ONE (23:11)
[2017-11-24 23:29] LABS: BAND NEUTROPHILS % (MANUAL) 1 % (0-2); EOSINOPHILS % (MANUAL) 3 % (1-6); LYMPHOCYTES % (MANUAL) 12 % (22-44); MAN.DIFF COMMENT-IMPRESSION MANUAL DIFFERENTIAL; MONOCYTES % (MANUAL) 4 % (2-9); SEGMENTED NEUTROPHILS % 80 % (40-70)
[2017-11-24 23:30] LABS: PLATELET MORPHOLOGY COMMENT DECREASED
[2017-11-24] MEDS ORDERED: PROMETHAZINE HCL 25 MG/ML 1ML AMPULE IM ONE (23:41)
[2017-11-24] MEDS ORDERED: ACETAMINOPHEN 325 MG TAB PO PRN ×2 (23:45)
[2017-11-24] MEDS ORDERED: DiphenhydrAMINE HCL 50 MG/ML VIAL IVP PRN (23:45)
[2017-11-24] MEDS ORDERED: ZOLPIDEM TARTRATE 5 MG TAB PO PRN (23:45)
[2017-11-24] MEDS: SODIUM CHLORIDE 0.9% 1000ML 1,000 ML IV SCH (23:45)
[2017-11-24] MEDS ORDERED: ONDANSETRON HCL 4 MG/2 ML VIAL IVP PRN (23:45)
[2017-11-24] MEDS ORDERED: LACTULOSE 20 GM/30 ML UDCUP PO PRN (23:45)
[2017-11-24] MEDS ORDERED: POTASSIUM CHLORIDE 10% ELIXIR 20 MEQ/15 ML UDCUP PO PRN (23:45)
[2017-11-24] MEDS ORDERED: POTASSIUM CHLORIDE 20MEQ/100ML 100 ML IV PRN (23:45)
[2017-11-24] MEDS ORDERED: GLUCAGON 1MG KIT 1 MG ML IM PRN (23:45)
[2017-11-24] MEDS ORDERED: LIDOCAINE HCL-MPF 1% 2ML VIAL IJ PRN (23:45)
[2017-11-24] MEDS ORDERED: VANCOMYCIN PROTOCOL PER PHARMACY IV SCH (23:45)
[2017-11-24] MEDS ORDERED: PHARMACY COMMUNICATION MISC SCH (23:45)
[2017-11-24] MEDS ORDERED: MAG HYDROX/AL HYDROX/SIMETH ES 30 ML SUSP UDCUP PO PRN (23:45)
[2017-11-24] MEDS ORDERED: DEXTROSE 50%-WATER 50 ML DISP.SYRIN IV PRN (23:45)
[2017-11-24] MEDS ORDERED: POTASSIUM CHLORIDE 20 MEQ ERTAB PO PRN (23:45)
[2017-11-24 23:50] LABS: ABG BASE EXCESS -1.7 mmol/L (-2.0-3.0); ABG HCO3 23.1 mmol/L (21.0-28.0); ABG OXYGEN SATURATION 95.9 % (95.0-99.0); ABG PCO2 40 mmHg (35-48)
[2017-11-25] VITALS (27 sets, daily range): BP systolic 102–166; BP diastolic 1–86
[2017-11-25 00:52] LABS: HEMATOCRIT 27.2 % (42-54)
[2017-11-25 03:47] LABS: BILIRUBIN,URINE SMALL (NEGATIVE); COLOR,URINE YELLOW (YELLOW); GLUCOSE, URINE (UA) 100 mg/dL (NEGATIVE); KETONES,URINE NEGATIVE (NEGATIVE); LEUKOCYTE ESTERASE ,URINE TRACE (NEGATIVE); NITRATE,URINE NEGATIVE (NEGATIVE); OCCULT BLOOD,URINE LARGE (NEGATIVE); PROTEIN,URINE 100 (NEGATIVE); UROBILINOGEN,URINE 0.2 mg/dL (0.2-1.0)
[2017-11-25 03:49] LABS: APPEARANCE,URINE CLOUDY (CLEAR)
[2017-11-25 04:28] LABS: BACTERIA,URINE Rare /HPF (None Seen)
[2017-11-25] MEDS: SODIUM CHLORIDE 0.9% 1000ML 1,000 ML IV SCH ×3 (06:25→20:40)
[2017-11-25] MEDS ORDERED: ZOSYN 3.375GM+NS 50ML 50 ML IV ONE ×2 (07:28→07:34)
[2017-11-25] MEDS ORDERED: SODIUM CHLORIDE 0.9% 100 ML IV ONE (07:30)
[2017-11-25] MEDS ORDERED: SODIUM CHLORIDE 0.9% 250 ML IV ONE (08:46)
[2017-11-25] MEDS ORDERED: VANCOMYCIN PROTOCOL PER PHARMACY IV SCH (11:00)
[2017-11-25] MEDS ORDERED: PANTOPRAZOLE 40 MG/VIAL IVP SCH (11:00)
[2017-11-25] MEDS ORDERED: IBUP-2071 PO (12:09)
[2017-11-25] MEDS ORDERED: PROPOFOL 10 MG/ML 20ML VIAL IV ONE (12:49)
[2017-11-25] MEDS ORDERED: EPHEDRINE SULFATE 50 MG/ML AMPULE ONE (12:59)
[2017-11-25] MEDS ORDERED: EPINEPHRINE 1 MG/ML AMPULE ONE (13:03)
[2017-11-25 15:00] LABS: HEMATOCRIT 30.7 % (42-54)
[2017-11-25] MEDS: ZOSYN 3.375GM+NS 50ML 50 ML IV SCH ×2 (15:44→22:50)
[2017-11-25] MEDS ORDERED: LACTULOSE 20 GM/30 ML UDCUP PO SCH (16:00)
[2017-11-25] MEDS ORDERED: MAGNESIUM CITRATE 296 ML SOLUTION PO SCH (16:30)
[2017-11-25] MEDS ORDERED: PEG 3350/NA SULF,BICARB,CL/KCL 4000 ML SOLN PO SCH (17:00)
[2017-11-25] MEDS: VANCOMYCIN 1GM+NS 250ML 250 ML IV SCH (17:43)
[2017-11-25] MEDS: BISACODYL 5 MG TABLET.DR PO SCH ×2 (19:00→22:54)
[2017-11-25 19:19] LABS: HEMATOCRIT 28.6 % (42-54)
[2017-11-25] MEDS: PANTOPRAZOLE SODIUM 80 MG in SODIUM CHLORIDE 0.9% 100 ML IV SCH (20:41)
[2017-11-25] MEDS ORDERED: BISACODYL 5 MG TABLET.DR PO ONE (22:53)
[2017-11-25 23:22] LABS: HEMATOCRIT 29.6 % (42-54)
[2017-11-26] MEDS: SODIUM CHLORIDE 0.9% 1000ML 1,000 ML IV SCH ×4 (01:52→22:25)
[2017-11-26 03:40] VITALS: BP 111/55
[2017-11-26 03:44] LABS: HEMATOCRIT 28.8 % (42-54); MEAN CORPUSCULAR HEMOGLOBIN 31.5 pg (27.0-33.0); MEAN CORPUSCULAR HGB CONC 35.6 g/dL (32.0-36.0); MEAN CORPUSCULAR VOLUME 88.4 fL (79-99); PLATELET COUNT (AUTO) 183 K/uL (130-400); RED BLOOD CELL COUNT(AUTO) 3.26 MIL/uL (4.50-6.20); RED CELL DISTRIBUTION WIDTH 16.9 % (11.0-15.5); WHITE BLOOD COUNT (AUTO) 7.2 K/uL (4.8-10.8)
[2017-11-26 04:00] LABS: CREATININE 4.1 mg/dL (0.5-1.5); POTASSIUM 4.4 mmol/L (3.5-5.1)
[2017-11-26 04:13] LABS: BASOPHILS % (MANUAL) 1 % (0-2); EOSINOPHILS % (MANUAL) 4 % (1-6); LYMPHOCYTES % (MANUAL) 4 % (22-44); MONOCYTES % (MANUAL) 9 % (2-9); SEGMENTED NEUTROPHILS % 82 % (40-70)
[2017-11-26 04:14] LABS: MAN.DIFF COMMENT-IMPRESSION MANUAL DIFFERENTIAL; PLATELET MORPHOLOGY COMMENT ADEQUATE
[2017-11-26 07:34] LABS: HEMATOCRIT 29.7 % (42-54)
[2017-11-26 07:40] VITALS: BP 120/62
[2017-11-26] MEDS ORDERED: PANTOPRAZOLE 40 MG/VIAL IVP SCH (09:00)
[2017-11-26] MEDS ORDERED: PANTOPRAZOLE SODIUM 40 MG TABLET.DR PO SCH (09:00)
[2017-11-26 11:20] VITALS: BP 123/61
[2017-11-26 11:42] LABS: HEMATOCRIT 30.4 % (42-54)
[2017-11-26] MEDS: ZOSYN 3.375GM+NS 50ML 50 ML IV SCH ×2 (12:36→22:54)
[2017-11-26] MEDS: VANCOMYCIN 1GM+NS 250ML 250 ML IV SCH (12:49)
[2017-11-26] MEDS ORDERED: PROPOFOL 10 MG/ML 20ML VIAL IV ONE (14:38)
[2017-11-26] MEDS ORDERED: LIDOCAINE HCL 2% 20ML ONE (14:40)
[2017-11-26] MEDS ORDERED: LACTULOSE 20 GM/30 ML UDCUP PO SCH (16:00)
[2017-11-26] MEDS ORDERED: MAGNESIUM CITRATE 296 ML SOLUTION PO SCH (16:00)
[2017-11-26 16:40] VITALS: BP 132/63
[2017-11-26] MEDS ORDERED: PEG 3350/NA SULF,BICARB,CL/KCL 4000 ML SOLN PO SCH (17:00)
[2017-11-26] MEDS ORDERED: 0.9% SODIUM CHLORIDE 250 ML IV BAG IV PRN (17:15)
[2017-11-26] MEDS ORDERED: ALBUMIN (HUMAN) 25% 100 ML IV PRN (17:15)
[2017-11-26] MEDS: SODIUM CHLORIDE 0.9% 1000ML 1,000 ML IV PRN (18:30)
[2017-11-26 19:43] VITALS: BP 149/71
[2017-11-26] MEDS: PANTOPRAZOLE SODIUM 80 MG in SODIUM CHLORIDE 0.9% 100 ML IV SCH (22:11)
[2017-11-26] MEDS ORDERED: PHARMACY COMMUNICATION MISC SCH (22:45)
[2017-11-26] MEDS ORDERED: PANTOPRAZOLE SODIUM 80 MG in NS 100ML IVP SCH (23:00)
[2017-11-27] VITALS (14 sets, daily range): BP systolic 132–164; BP diastolic 52–74
[2017-11-27 04:37] LABS: HEMATOCRIT 29.4 % (42-54); MEAN CORPUSCULAR HEMOGLOBIN 30.5 pg (27.0-33.0); MEAN CORPUSCULAR HGB CONC 34.7 g/dL (32.0-36.0); MEAN CORPUSCULAR VOLUME 87.9 fL (79-99); PLATELET COUNT (AUTO) 197 K/uL (130-400); RED BLOOD CELL COUNT(AUTO) 3.34 MIL/uL (4.50-6.20); RED CELL DISTRIBUTION WIDTH 16.9 % (11.0-15.5)
[2017-11-27 04:47] LABS: CREATININE 3.3 mg/dL (0.5-1.5); POTASSIUM 3.8 mmol/L (3.5-5.1)
[2017-11-27] MEDS: SODIUM CHLORIDE 0.9% 1000ML 1,000 ML IV SCH ×3 (05:05→18:25)
[2017-11-27] MEDS: ZOSYN 3.375GM+NS 50ML 50 ML IV SCH ×2 (11:21→22:57)
[2017-11-27] MEDS: VANCOMYCIN 1GM+NS 250ML 250 ML IV SCH (11:22)
[2017-11-27] MEDS ORDERED: PROPOFOL 10 MG/ML 20ML VIAL IV ONE ×2 (13:29)
[2017-11-27] MEDS ORDERED: LACTULOSE 20 GM/30 ML UDCUP PO SCH ×2 (15:00→16:00)
[2017-11-27 15:14] LABS: HEMATOCRIT 32.8 % (42-54)
[2017-11-27] MEDS ORDERED: MAGNESIUM CITRATE 296 ML SOLUTION PO SCH (16:00)
[2017-11-27] MEDS ORDERED: PEG 3350/NA SULF,BICARB,CL/KCL 4000 ML SOLN PO SCH (17:00)
[2017-11-27] MEDS ORDERED: BISACODYL 5 MG TABLET.DR PO SCH (18:00)
[2017-11-28] VITALS (14 sets, daily range): BP systolic 129–170; BP diastolic 54–78
[2017-11-28] MEDS: SODIUM CHLORIDE 0.9% 1000ML 1,000 ML IV SCH ×4 (01:05→19:47)
[2017-11-28 04:06] LABS: HEMATOCRIT 32.4 % (42-54); MEAN CORPUSCULAR HEMOGLOBIN 30.3 pg (27.0-33.0); MEAN CORPUSCULAR HGB CONC 34.3 g/dL (32.0-36.0); MEAN CORPUSCULAR VOLUME 88.2 fL (79-99); NUCLEATED RED BLOOD CELLS 0.1 % (0.0-0.19); PLATELET COUNT (AUTO) 222 K/uL (130-400); RED BLOOD CELL COUNT(AUTO) 3.67 MIL/uL (4.50-6.20); RED CELL DISTRIBUTION WIDTH 16.2 % (11.0-15.5); WHITE BLOOD COUNT (AUTO) 8.2 K/uL (4.8-10.8)
[2017-11-28 04:23] LABS: CREATININE 4.4 mg/dL (0.5-1.5); PHOSPHORUS 1.9 mg/dL (2.5-4.9); POTASSIUM 3.9 mmol/L (3.5-5.1)
[2017-11-28] MEDS: ZOSYN 3.375GM+NS 50ML 50 ML IV SCH ×2 (11:00→21:13)
[2017-11-28] MEDS ORDERED: PROPOFOL 10 MG/ML 20ML VIAL IV ONE (12:52)
[2017-11-28] MEDS ORDERED: LIDOCAINE HCL 1% 20 ML VIAL ONE (12:53)
[2017-11-28] MEDS ORDERED: KETAMINE HCL 100 MG/ML 5ML VIAL IJ ONE (13:12)
[2017-11-28] MEDS: PANTOPRAZOLE SODIUM 80 MG in SODIUM CHLORIDE 0.9% 100 ML IV SCH (21:13)
[2017-11-29] VITALS (21 sets, daily range): BP systolic 93–163; BP diastolic 35–74
[2017-11-29] MEDS: SODIUM CHLORIDE 0.9% 1000ML 1,000 ML IV SCH ×4 (03:45→17:05)
[2017-11-29 04:06] LABS: HEMATOCRIT 30.5 % (42-54); MEAN CORPUSCULAR HEMOGLOBIN 30.5 pg (27.0-33.0); MEAN CORPUSCULAR VOLUME 87.1 fL (79-99); NUCLEATED RED BLOOD CELLS 0.2 % (0.0-0.19); PLATELET COUNT (AUTO) 177 K/uL (130-400); RED CELL DISTRIBUTION WIDTH 16.4 % (11.0-15.5); WHITE BLOOD COUNT (AUTO) 7.1 K/uL (4.8-10.8)
[2017-11-29 04:16] LABS: INR 1.08 (0.85-1.15); PARTIAL THROMBOPLASTIN TIME 26.8 SEC (26.3-35.5); PROTHROMBIN TIME 11.3 SEC (9.6-11.6)
[2017-11-29 04:20] LABS: CREATININE 3.4 mg/dL (0.5-1.5); POTASSIUM 3.9 mmol/L (3.5-5.1)
[2017-11-29] MEDS: PANTOPRAZOLE SODIUM 80 MG in SODIUM CHLORIDE 0.9% 100 ML IV SCH (07:00)
[2017-11-29] MEDS: VANCOMYCIN 1GM+NS 250ML 250 ML IV SCH ×2 (08:56→09:42)
[2017-11-29] MEDS: ZOSYN 3.375GM+NS 50ML 50 ML IV SCH ×2 (11:39→21:47)
[2017-11-29] MEDS ORDERED: PROPOFOL 10 MG/ML 20ML VIAL IV ONE (14:13)
[2017-11-29] MEDS ORDERED: LIDOCAINE HCL 2% 20ML ONE (14:19)
[2017-11-29] MEDS: INSULIN HUMULIN R 100 UNIT/ML 3ML SQ SCH (21:00)
[2017-11-29] MEDS: BRIMONIDINE TARTRATE OU SCH (21:00)
[2017-11-29] MEDS ORDERED: DEXTROSE 50%-WATER 50 ML DISP.SYRIN IV PRN (22:45)
[2017-11-29] MEDS ORDERED: GLUCAGON 1MG KIT 1 MG ML IM PRN (22:45)
[2017-11-30 03:33] VITALS: BP 132/61
[2017-11-30 05:00] LABS: HEMATOCRIT 28.9 % (42-54); MEAN CORPUSCULAR HEMOGLOBIN 30.9 pg (27.0-33.0); MEAN CORPUSCULAR HGB CONC 35.2 g/dL (32.0-36.0); MEAN CORPUSCULAR VOLUME 87.8 fL (79-99); NUCLEATED RED BLOOD CELLS 0.1 % (0.0-0.19); PLATELET COUNT (AUTO) 160 K/uL (130-400); RED CELL DISTRIBUTION WIDTH 16.5 % (11.0-15.5); WHITE BLOOD COUNT (AUTO) 6.8 K/uL (4.8-10.8)
[2017-11-30 05:13] LABS: CREATININE 4.7 mg/dL (0.5-1.5)
[2017-11-30] MEDS: INSULIN HUMULIN R 100 UNIT/ML 3ML SQ SCH (06:10)
[2017-11-30] MEDS: SODIUM CHLORIDE 0.9% 1000ML 1,000 ML IV SCH ×2 (06:25→11:06)
[2017-11-30 07:00] VITALS: BP 180/75
[2017-11-30] MEDS: BRIMONIDINE TARTRATE OU SCH (09:00)
[2017-11-30] MEDS: SODIUM CHLORIDE 0.9% 1000ML 1,000 ML IV PRN (09:30)
[2017-11-30] MEDS: ZOSYN 3.375GM+NS 50ML 50 ML IV SCH (10:40)
[2017-11-30 11:35] VITALS: BP 149/64
[2017-11-30 16:17] VITALS: BP 135/66
== END 2017-11-30 16:50 | DRG 871 ==
LOC: EDH 21:29 → EDHIP 23:00 → 2DH 11-25 11:57
PROVIDERS: ADMIT Family Medicine; ATTEND Family Medicine
PROC: 0DJ08ZZ Inspection of Upper Intestinal Tract, Via Natural or Artificial Opening Endoscopic (ICD-10-PCS; principal; 2017-11-25)
PROC: 30233R1 Transfusion of Nonautologous Platelets into Peripheral Vein, Percutaneous Approach (ICD-10-PCS; 2017-11-26)
PROC: 5A1D70Z Performance of Urinary Filtration, Intermittent, Less than 6 Hours Per Day (ICD-10-PCS; 2017-11-26)
PROC: 30233N1 Transfusion of Nonautologous Red Blood Cells into Peripheral Vein, Percutaneous Approach (ICD-10-PCS; 2017-11-30)
PROC: 5A1D70Z Performance of Urinary Filtration, Intermittent, Less than 6 Hours Per Day (ICD-10-PCS; 2017-11-30)
DX: A41.9 Sepsis, unspecified organism (principal); N18.6 End stage renal disease; N39.0 Urinary tract infection, site not specified; D62 Acute posthemorrhagic anemia; I13.2 Hypertensive heart and chronic kidney disease with heart failure and with stage 5 chronic kidney disease, or end stage renal disease; M86.9 Osteomyelitis, unspecified; K92.2 Gastrointestinal hemorrhage, unspecified; F03.90 Unspecified dementia, unspecified severity, without behavioral disturbance, psychotic disturbance, mood disturbance, and anxiety; E11.21 Type 2 diabetes mellitus with diabetic nephropathy; E11.22 Type 2 diabetes mellitus with diabetic chronic kidney disease; E11.51 Type 2 diabetes mellitus with diabetic peripheral angiopathy without gangrene; E11.649 Type 2 diabetes mellitus with hypoglycemia without coma; E11.69 Type 2 diabetes mellitus with other specified complication; I25.10 Atherosclerotic heart disease of native coronary artery without angina pectoris; I50.9 Heart failure, unspecified; K64.8 Other hemorrhoids; Z89.411 Acquired absence of right great toe; Z89.412 Acquired absence of left great toe; Z95.1 Presence of aortocoronary bypass graft; Z99.2 Dependence on renal dialysis
CPT/HCPCS: 36415; 36600; 71045; 80048; 80053; 80202; 81001; 82140; 82270; 82550; 82553; 82803; 82948; 83605; 83874; 84100; 84484; 85014; 85018; 85025; 85027; 85610; 85730; 86677; 86850; 86900; 86901; 86922; 87040; 87088; 90935; 93005; 99291; C9113; J0171; J1200; J1265; J2405; J2543; J2550; J2704; J3370; J3490; J7030; P9016; P9034